=== PATIENT | female | born 1950 | race Caucasian/White ===

== ENCOUNTER → 2017-04-30 | Outpatient (CLI) | payer MEDICARE, MEDICAID ==
[~2017-04-30] MED LIST: ALPR0.25 PO; ALPR1TAB3 PO; LISI-587 PO; METF500T PO; NAPR-810 PO
--- NOTE | 2017-04-30 11:50 | RADRPT ---
EXAM DATE/TIME: 04/30/2017 11:28 [place] COMPARISON: CHEST PA & LAT, March 25, 2017, 15:04. INDICATIONS : Evaluate for pneumonia, pneumothorax, communicable diseases. Pre-op uterine surgery MEDICAL HISTORY : None. SURGICAL HISTORY : None. ENCOUNTER: Initial ACUITY: 1 day PAIN SCORE: 0/10 LOCATION: chest FINDINGS: Right chest port is in stable position. Lungs are focally clear. No pleural effusion is evident. Card iac contours are satisfactory. Thoracic skeleton is grossly intact. CONCLUSION: No acute disease Kenneth Khoury MD on April 30, 2017 at 11:46 Board Certified Radiologist. This report was verified electronically.
--- NOTE | 2017-04-30 13:41 | EKG ---
Date Performed: 04/30/2017 Time Performed: 10:54:41 PTAGE: 67 years EKG: Sinus rhythm NORMAL ECG No significant change from prior electrocardiogram. DOCTOR: Marcelino House Interpretating Date/Time 04/30/2017 13:16:48
== END ==
LOC: CPRE 10:24
PROVIDERS: ATTEND Obstetrics & Gynecology Gynecologic Oncology
DX: Z01.810 Encounter for preprocedural cardiovascular examination (principal); Z01.811 Encounter for preprocedural respiratory examination; C51.9 Malignant neoplasm of vulva, unspecified
CPT/HCPCS: 71046; 93005

== ENCOUNTER → 2017-05-12 | Day surgery (SDC) | payer MEDICARE, MEDICAID ==
[~2017-05-12] VITALS: Ht 144.8 cm; Wt 79.3 kg
[~2017-05-12] MED LIST changes: +*MEPERIDINE 25 MG INJ VIAL PERIprocedural Use ONLY ONE; -ALPR1TAB3 PO; +ASPI81TA23 PO; +CHLORHEXIDINE GLUCONATE 2 % 1 PACK (2 CLOTHS) TOPICAL PRN; +DEXAMETHASONE SOD PHOS 4 MG/ML VIAL IV ONE; +DO NOT ADM ANY ANTICOAGULANT DRUGS PRN; +KETOROLAC TROMETHAMINE 30 MG/ML (IVP) VIAL IV PUSH ONE; +LACTATED RINGER'S 1000 ML IV PRN; +LIDOCAINE 1%/EPINEPHrine 1:100,000 SOLN 30 ML VIAL ONE; +LIDOCAINE HCL 1% PF 5 ML SYRINGE OTHER ONE; +METOPROLOL TARTRATE 25 MG TAB PO PRN; +MIDAZOLAM HCL 2 MG/2 ML VIAL ONE; -NAPR-810 PO; +ONDANSETRON HCL 4 MG/2 ML VIAL IV ONE; +PHENYLEPH/NS 1000 MCG/10 ML SYR IV ONE; +POVIDONE IODINE 5% (ANTISEPSIS KIT) 4 APPLICATIONS EACH NARE PRN; +PROPOFOL 200 MG/20 ML AMP IV ONE; +SODIUM CHLORID 0.9% 500 ML IV PRN; +oxyCODONE/ACETAMINOPHEN 5 MG/325 MG TAB PO PRN
[2017-05-12 16:40] VITALS: BP 114/56; PULSE 75; RESP 18; TEMP 97.9; O2SAT 95
--- NOTE | 2017-05-13 12:23 | MP ---
cc: Gail Glynn MD, Paula M MD DATE OF OPERATION: 05/12/2017 Cc: Marcus Youssef DATE OF PROCEDURE: 05/12/2017. POSTOPERATIVE DIAGNOSES: 1. 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 2. Status post radiation treatment. 3. Persistent pain, altered anatomy, ulcerative areas. 4. Need to evaluate for possibility of persistent disease. POSTOPERATIVE DIAGNOSES: 1. 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 2. Status post radiation treatment. 3. Persistent pain, altered anatomy, ulcerative areas. 4. Need to evaluate for possibility of persistent disease. PROCEDURE PERFORMED: Examination under anesthesia, multifocal biopsies. SURGEON: Gail Glynn MD CHARGEBACK ANALYST: Becka visitor services assistant. ANESTHESIA: General endotracheal anesthesia. ESTIMATED BLOOD LOSS: 20 cc. 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 She underwent radiation therapy with [place] chemotherapy sensitization with good response to treatment. However, she continues to have some areas of chronic irritation on the vulva, some superficial ulcerations and some nodular changes. It is difficult to tell if it is anatomical changes consistent with prior tumor and radiation treatment versus persistent disease. Exam in the office is difficult as she is quite uncomfortable. She was counseled regarding options and was in favor of exam under anesthesia with multifocal biopsies. She is seen again in the preop holding area where 2 of her daughters are present. The findings, the plan of care and recommendations are discussed and reviewed. Questions were answered. She expressed good understanding and would like to move forward with the diagnostic surgical procedure. FINDINGS: As previously described in office note. There is no overt inguinal adenopathy. External genitalia has diffuse changes consistent with prior tumor and now status post radiation. There is loss of the normal folds of the labia minora and labia majora. There is some irritation to the vulva and vaginal mucosa with some stenotic changes. In the periclitoral region, especially on the right, there is superficial ulceration, thickening to the surrounding skin. Also, at the 5 o'clock position on the left vulva, there is some area of erythema and thickened skin. The most prominent area of necrotic-appearing tissue is at the 8 o'clock position on the right vulva, there is superficial ulceration/irritation on the perineum and she has what seems to be external hemorrhoids, but the overlying mucosa is thickened. On careful exam under anesthesia, it is still difficult to tell if there is any active cancer versus treatment change. PROCEDURE: She was taken to the operating room and placed in dorsal lithotomy position. After anesthesia was administered, timeout was undertaken. She was identified by site recognition, hospital ID carmel and the proposed procedure was reviewed and confirmed. Exam under anesthesia was performed with findings as described above. She was prepped and draped in sterile fashion. In-and-out catheterization of the bladder was performed. Each of the areas that appear abnormal are marked with a surgical marker. Lidocaine and epinephrine are injected and then 3 mm dermal punch biopsies were obtained from each of the areas described as abnormal above including the right clitoral, left vulva at 5 o'clock, right vulva at 8 o'clock, perineum and anal biopsies were obtained, labeled and sent separately. A single 3-0 Vicryl suture was used to render each biopsy site hemostatic. All sites were hemostatic. Exam confirmed there were no remaining foreign objects in the vagina. Preliminary and final counts were correct. She was returned to dorsal supine position and was pending reversal of anesthesia when I left the operating room to precede her to the Postanesthesia Care Unit. MD JOSH Foster/KAYCEE , 12:00 PM , 12:22 PM
== END | disposition home or self-care (01) ==
LOC: HSDC 10:50
PROVIDERS: ATTEND Obstetrics & Gynecology Gynecologic Oncology
DX: C51.9 Malignant neoplasm of vulva, unspecified (principal); I10 Essential (primary) hypertension; G47.30 Sleep apnea, unspecified; E11.9 Type 2 diabetes mellitus without complications; Z79.84 Long term (current) use of oral hypoglycemic drugs; Z79.82 Long term (current) use of aspirin; Z92.3 Personal history of irradiation
CPT/HCPCS: 00940; 56605; 56606; 86850; 86900; 86901; 88305; J1100; J1885; J2175; J2250; J2370; J2405; J3010; J7120; 88304

== ENCOUNTER 2017-11-18 12:02 | Observation (INO) ==
[2017-11-18] MEDS ORDERED: Sod Chloride 0.9% Inj 1,000 ML IV.SIG ONE (13:42)
[2017-11-18] MEDS ORDERED: Morphine Inj 4 MG/ML Vial IV.PUSH ONE ×2 (13:42→16:41)
--- NOTE | 2017-11-18 13:44 | ED ---
HPI General Chief complaint: Abdominal Pain Stated complaint: Poss GI Complaint Time Seen by Provider: 11/18/17 12:28 History of Present Illness HPI narrative: 67-year-old female with a history of vulvovaginal squamous cell carcinoma on chemotherapy, diabetes, anxiety, hypertension, peptic ulcer disease presents to the emergency department for evaluation of epigastric abdominal pain, nausea, black stools for 3 days. Patient states that the pain in her epigastric region radiates to her left upper quadrant, describes it as a burning pain. States that she also has some pain in her posterior oropharynx aggravated with swallowing. States she has had black bowel movements for the past 3 days, every bowel movement she has had. She is also complaining of generalized weakness, headache, lightheadedness. Denies fever, chills, vomiting , hematemesis, chest pain, shortness of breath, cough or cold symptoms, burning with urination, painful urination. States she had a colonoscopy earlier this year which was unremarkable. No other complaints. Related Data Home Medications Medication Instructions Recorded Confirmed alprazolam [Xanax] 0.25 mg PO HS 11/18/17 11/18/17 lisinopril 20 mg PO DAILY 11/18/17 11/18/17 metformin 500 mg PO DAILY 11/18/17 11/18/17 Allergies Allergy/AdvReac Type Severity Reaction Status Date / Time No Known Allergies Allergy Verified 11/18/17 16:38 Review of Systems ROS: all other systems reviewed are negative PMFSH Social History Social History Substance History: No History of Abuse Second Hand Smoke Exposure: Yes Smoking Status: Current every day smoker Tobacco Type: Cigarettes How Often Do You Have a Drink Containing Alcohol: Never Recent Travel in [facility] within the Last 8 Weeks: No Recent Out of Country Travel within the Last 8 Weeks: No Exam Narrative Exam Narrative: GENERAL: Well-nourished and well-developed pleasant patient in no acute distress who is nontoxic appearing. SKIN: Warm and dry. HEAD: Normocephalic and atraumatic. EYES: No injection, drainage, or hyphema noted. PERRLA. EOMI. ENT: No nasal drainage noted. Oropharynx is clear. NECK: Supple and the trachea is midline. CARDIOVASCULAR: Regular rate and rhythm. RESPIRATORY: Breath sounds are equal bilaterally with no accessory muscle use, wheezing, rhonchi, or crackles. GASTROINTESTINAL: Epigastric and left upper quadrant tenderness to palpation with guarding. Negative Moore sign. Negative McBurney's point. Abdomen is soft and nondistended. RECTAL EXAM: External hemorrhoids noted. No masses or tenderness, stool is brown. Performed in the presence of nurse. MUSCULOSKELETAL: No obvious deformities, swelling, cyanosis, or ecchymosis is present throughout the upper and lower extremities. Patient has full range of motion without any signs of neurovascular compromise. Distal pulses are 2+ throughout. NEUROLOGICAL: Awake, alert, and oriented. Normal speech and gait. Cranial nerves are grossly intact. Procedures Hemaprompt Stool Procedural Steps Taken: specimen placed in appropriate test area, developer placed on specimen and control areas and controls appropriately positive and negative Hemaprompt Stool Result: positive Course Initial Documented Vital Signs Temperature 98.1 F 11/18/17 12:10 Pulse Rate 78 11/18/17 12:10 Respiratory Rate 20 11/18/17 12:10 Blood Pressure 158/73 H 11/18/17 12:10 Pulse Oximetry 99 11/18/17 12:10 Last Documented Vital Signs Temperature 97.8 F 11/19/17 14:00 Pulse Rate 79 11/19/17 14:05 Respiratory Rate 16 11/19/17 14:05 Blood Pressure 125/60 11/19/17 14:00 Pulse Oximetry 99 11/19/17 14:05 Medical Decision Making [facility] Narrative Medical decision making narrative: 67-year-old female presents to the emergency room for evaluation of epigastric abdominal pain and black stools. Patient is afebrile, vital signs are stable. She does have some tenderness to palpation of the epigastric and left upper quadrant on exam. Stool guaiac is positive. IV access is obtained, labs been drawn and sent. Patient administered IV fluids , Zofran, morphine, Protonix bolus and drip. CBC shows slightly elevated white blood cell count of 11.3 and anemia with hemoglobin 9.6, hematocrit 28.6. This is a drop from her previous hemoglobin noted in April. Chest x-ray is unremarkable. Coags are unremarkable. CMP is unremarkable. Urinalysis is unremarkable. 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 Patient will be admitted for GI bleed. She is hemodynamically stable. GI consult placed. My attending physician spoke with Dr. Russ who accepts admission. Medical Screen Exam Complete: Yes Emergency Medical Condition: Yes Differential Diagnosis Differential Diagnosis: GI bleed versus peptic ulcer disease versus dehydration versus anemia Lab Data Result diagrams: 11/19/17 09:00 11/19/17 04:51 Lab Results 11/18/17 11/18/17 11/18/17 Range/Units 14:36 14:55 14:55 WBC 11.3 H (4.0-11.0) th/mm3 RBC 2.94 L (4.00-5.30) mil/mm3 Hgb 9.6 L (11.6-15.3) gm/dL Hct 28.6 L (35.0-46.0) % MCV 97.2 (80.0-100.0) fL MCH 32.7 (27.0-34.0) pg MCHC 33.7 (32.0-36.0) % RDW 16.5 (11.6-17.2) % Plt Count 174 (150-450) th/mm3 MPV 8.9 (7.0-11.0) fL Neut % (Auto) 77.4 H (16.0-70.0) % Lymph % (Auto) 14.5 (9.0-44.0) % [place] % (Auto) 6.4 (0.0-8.0) % Eos % (Auto) 1.2 (0.0-4.0) % Baso % (Auto) 0.5 (0.0-2.0) % Neut # (Auto) 8.7 H (1.8-7.7) th/mm3 Lymph # (Auto) 1.6 (1.0-4.8) th/mm3 [place] # (Auto) 0.7 (0.0-0.9) th/mm3 Eos # (Auto) 0.1 (0.0-0.4) th/mm3 Baso # (Auto) 0.1 (0.0-0.2) th/mm3 WBC Differential . Differential Comment Auto diff final PT 10.1 (9.8-11.6) sec INR 1.0 Ratio APTT 32.2 H (24.3-30.1) sec Sodium (136-145) meq/L Potassium (3.5-5.1) meq/L Chloride (98-107) meq/L Carbon Dioxide (21.0-32.0) meq/L Anion Gap (5-15) meq/L BUN (7-18) mg/dL Creatinine (0.50-1.00) mg/dL Estimated GFR (>89) mL/min POC Glucose (68-110) mg/dl Random Glucose (74-106) mg/dL Calcium (8.5-10.1) mg/dL Total Bilirubin (0.2-1.0) mg/dL AST (15-37) U/L ALT (10-53) U/L Alkaline Phosphatase (45-117) U/L Total Protein (6.4-8.2) g/dL Albumin (3.4-5.0) g/dL Lipase (73-393) U/L Urine Color Straw (Yellw/Straw) Urine Clarity Clear (Clear) Urine pH 5.0 (5.0-8.5) Ur Specific Plummer 1.010 (1.002-1.035) Urine Protein Negative (Neg-Trace) mg/dL Urine Glucose (UA) Negative (Negative) mg/dL Urine Ketones Negative (Negative) mg/dL Urine Occult Blood Small H (Negative) Urine Nitrate Negative (Negative) Urine Bilirubin Negative (Negative) Urine Urobilinogen Less than 2 (Less than 2) mg/dL Ur Leukocyte Esterase Negative (Negative) Urine RBC 1 (0-3) /hpf Urine WBC 2 (0-5) /hpf Ur Squamous Epith Cells <1 (0-5) /hpf Urine Bacteria Rare H (None) /hpf Hyaline Casts 1 (0-3) /lpf Urine Mucus Few H (Occasional) /lpf Micro UA Comment Culture not ind Ur Microscopic Review Not Reportable Urine Culture Comments Culture not ind Blood Type Blood Type Recheck Antibody Screen 11/18/17 11/18/17 11/18/17 Range/Units 14:55 14:55 21:20 WBC (4.0-11.0) th/mm3 RBC (4.00-5.30) mil/mm3 Hgb 9.1 L (11.6-15.3) gm/dL Hct 27.1 L (35.0-46.0) % MCV (80.0-100.0) fL MCH (27.0-34.0) pg MCHC (32.0-36.0) % RDW (11.6-17.2) % Plt Count (150-450) th/mm3 MPV (7.0-11.0) fL Neut % (Auto) (16.0-70.0) % Lymph % (Auto) (9.0-44.0) % [place] % (Auto) (0.0-8.0) % Eos % (Auto) (0.0-4.0) % Baso % (Auto) (0.0-2.0) % Neut # (Auto) (1.8-7.7) th/mm3 Lymph # (Auto) (1.0-4.8) th/mm3 [place] # (Auto) (0.0-0.9) th/mm3 Eos # (Auto) (0.0-0.4) th/mm3 Baso # (Auto) (0.0-0.2) th/mm3 WBC Differential Differential Comment PT (9.8-11.6) sec INR Ratio APTT (24.3-30.1) sec Sodium 143 (136-145) meq/L Potassium 4.9 (3.5-5.1) meq/L Chloride 107 (98-107) meq/L Carbon Dioxide 27.8 (21.0-32.0) meq/L Anion Gap 8 (5-15) meq/L BUN 12 (7-18) mg/dL Creatinine 0.59 (0.50-1.00) mg/dL Estimated GFR Greater than 89 (>89) mL/min POC Glucose (68-110) mg/dl Random Glucose 102 (74-106) mg/dL Calcium 8.8 (8.5-10.1) mg/dL Total Bilirubin 0.3 (0.2-1.0) mg/dL AST 21 (15-37) U/L ALT 16 (10-53) U/L Alkaline Phosphatase 114 (45-117) U/L Total Protein 7.4 (6.4-8.2) g/dL Albumin 3.0 L (3.4-5.0) g/dL Lipase 162 (73-393) U/L Urine Color (Yellw/Straw) Urine Clarity (Clear) Urine pH (5.0-8.5) Ur Specific [place]ummer (1.002-1.035) Urine Protein (Neg-Trace) mg/dL Urine Glucose (UA) (Negative) mg/dL Urine Ketones (Negative) mg/dL Urine Occult Blood (Negative) Urine Nitrate (Negative) Urine Bilirubin (Negative) Urine Urobilinogen (Less than 2) mg/dL Ur Leukocyte Esterase (Negative) Urine RBC (0-3) /hpf Urine WBC (0-5) /hpf Ur Squamous Epith Cells (0-5) /hpf Urine Bacteria (None) /hpf Hyaline Casts (0-3) /lpf Urine Mucus (Occasional) /lpf Micro UA Comment Ur Microscopic Review Urine Culture Comments Blood Type O Positive Blood Type Recheck Not needed Antibody Screen Negative 11/18/17 11/19/17 11/19/17 Range/Units 23:15 02:37 03:44 WBC (4.0-11.0) th/mm3 RBC (4.00-5.30) mil/mm3 Hgb 8.8 L (11.6-15.3) gm/dL Hct 26.1 L (35.0-46.0) % MCV (80.0-100.0) fL MCH (27.0-34.0) pg MCHC (32.0-36.0) % RDW (11.6-17.2) % Plt Count (150-450) th/mm3 MPV (7.0-11.0) fL Neut % (Auto) (16.0-70.0) % Lymph % (Auto) (9.0-44.0) % [place] % (Auto) (0.0-8.0) % Eos % (Auto) (0.0-4.0) % Baso % (Auto) (0.0-2.0) % Neut # (Auto) (1.8-7.7) th/mm3 Lymph # (Auto) (1.0-4.8) th/mm3 [place] # (Auto) (0.0-0.9) th/mm3 Eos # (Auto) (0.0-0.4) th/mm3 Baso # (Auto) (0.0-0.2) th/mm3 WBC Differential Differential Comment PT (9.8-11.6) sec INR Ratio APTT (24.3-30.1) sec Sodium (136-145) meq/L Potassium (3.5-5.1) meq/L Chloride (98-107) meq/L Carbon Dioxide (21.0-32.0) meq/L Anion Gap (5-15) meq/L BUN (7-18) mg/dL Creatinine (0.50-1.00) mg/dL Estimated GFR (>89) mL/min POC Glucose 134 H 112 H (68-110) mg/dl Random Glucose (74-106) mg/dL Calcium (8.5-10.1) mg/dL Total Bilirubin (0.2-1.0) mg/dL AST (15-37) U/L ALT (10-53) U/L Alkaline Phosphatase (45-117) U/L Total Protein (6.4-8.2) g/dL Albumin (3.4-5.0) g/dL Lipase (73-393) U/L Urine Color (Yellw/Straw) Urine Clarity (Clear) Urine pH (5.0-8.5) Ur Specific Plummer (1.002-1.035) Urine Protein (Neg-Trace) mg/dL Urine Glucose (UA) (Negative) mg/dL Urine Ketones (Negative) mg/dL Urine Occult Blood (Negative) Urine Nitrate (Negative) Urine Bilirubin (Negative) Urine Urobilinogen (Less than 2) mg/dL Ur Leukocyte Esterase (Negative) Urine RBC (0-3) /hpf Urine WBC (0-5) /hpf Ur Squamous Epith Cells (0-5) /hpf Urine Bacteria (None) /hpf Hyaline Casts (0-3) /lpf Urine Mucus (Occasional) /lpf Micro UA Comment Ur Microscopic Review Urine Culture Comments Blood Type Blood Type Recheck Antibody Screen 11/19/17 11/19/17 11/19/17 Range/Units 04:51 04:51 07:31 WBC 10.1 (4.0-11.0) th/mm3 RBC 2.75 L (4.00-5.30) mil/mm3 Hgb 8.9 L (11.6-15.3) gm/dL Hct 26.5 L (35.0-46.0) % MCV 96.3 (80.0-100.0) fL MCH 32.4 (27.0-34.0) pg MCHC 33.6 (32.0-36.0) % RDW 16.5 (11.6-17.2) % Plt Count 157 (150-450) th/mm3 MPV 8.6 (7.0-11.0) fL Neut % (Auto) 78.3 H (16.0-70.0) % Lymph % (Auto) 13.5 (9.0-44.0) % [place] % (Auto) 6.9 (0.0-8.0) % Eos % (Auto) 1.0 (0.0-4.0) % Baso % (Auto) 0.3 (0.0-2.0) % Neut # (Auto) 7.9 H (1.8-7.7) th/mm3 Lymph # (Auto) 1.4 (1.0-4.8) th/mm3 [place] # (Auto) 0.7 (0.0-0.9) th/mm3 Eos # (Auto) 0.1 (0.0-0.4) th/mm3 Baso # (Auto) 0.0 (0.0-0.2) th/mm3 WBC Differential . Differential Comment Auto diff final PT (9.8-11.6) sec INR Ratio APTT (24.3-30.1) sec Sodium 143 (136-145) meq/L Potassium 3.7 D (3.5-5.1) meq/L Chloride 110 H (98-107) meq/L Carbon Dioxide 26.4 (21.0-32.0) meq/L Anion Gap 7 (5-15) meq/L BUN 10 (7-18) mg/dL Creatinine 0.53 (0.50-1.00) mg/dL Estimated GFR Greater than 89 (>89) mL/min POC Glucose 136 H (68-110) mg/dl Random Glucose 97 (74-106) mg/dL Calcium 8.7 (8.5-10.1) mg/dL Total Bilirubin (0.2-1.0) mg/dL AST (15-37) U/L ALT (10-53) U/L Alkaline Phosphatase (45-117) U/L Total Protein (6.4-8.2) g/dL Albumin (3.4-5.0) g/dL Lipase (73-393) U/L Urine Color (Yellw/Straw) Urine Clarity (Clear) Urine pH (5.0-8.5) Ur Specific Plummer (1.002-1.035) Urine Protein (Neg-Trace) mg/dL Urine Glucose (UA) (Negative) mg/dL Urine Ketones (Negative) mg/dL Urine Occult Blood (Negative) Urine Nitrate (Negative) Urine Bilirubin (Negative) Urine Urobilinogen (Less than 2) mg/dL Ur Leukocyte Esterase (Negative) Urine RBC (0-3) /hpf Urine WBC (0-5) /hpf Ur Squamous Epith Cells (0-5) /hpf Urine Bacteria (None) /hpf Hyaline Casts (0-3) /lpf Urine Mucus (Occasional) /lpf Micro UA Comment Ur Microscopic Review Urine Culture Comments Blood Type Blood Type Recheck Antibody Screen 11/19/17 11/19/17 11/19/17 Range/Units 09:00 11:15 14:01 WBC (4.0-11.0) th/mm3 RBC (4.00-5.30) mil/mm3 Hgb 9.0 L (11.6-15.3) gm/dL Hct 25.5 L (35.0-46.0) % MCV (80.0-100.0) fL MCH (27.0-34.0) pg MCHC (32.0-36.0) % RDW (11.6-17.2) % Plt Count (150-450) th/mm3 MPV (7.0-11.0) fL Neut % (Auto) (16.0-70.0) % Lymph % (Auto) (9.0-44.0) % [place] % (Auto) (0.0-8.0) % Eos % (Auto) (0.0-4.0) % Baso % (Auto) (0.0-2.0) % Neut # (Auto) (1.8-7.7) th/mm3 Lymph # (Auto) (1.0-4.8) th/mm3 [place] # (Auto) (0.0-0.9) th/mm3 Eos # (Auto) (0.0-0.4) th/mm3 Baso # (Auto) (0.0-0.2) th/mm3 WBC Differential Differential Comment PT (9.8-11.6) sec INR Ratio APTT (24.3-30.1) sec Sodium (136-145) meq/L Potassium (3.5-5.1) meq/L Chloride (98-107) meq/L Carbon Dioxide (21.0-32.0) meq/L Anion Gap (5-15) meq/L BUN (7-18) mg/dL Creatinine (0.50-1.00) mg/dL Estimated GFR (>89) mL/min POC Glucose 121 H 127 H (68-110) mg/dl Random Glucose (74-106) mg/dL Calcium (8.5-10.1) mg/dL Total Bilirubin (0.2-1.0) mg/dL AST (15-37) U/L ALT (10-53) U/L Alkaline Phosphatase (45-117) U/L Total Protein (6.4-8.2) g/dL Albumin (3.4-5.0) g/dL Lipase (73-393) U/L Urine Color (Yellw/Straw) Urine Clarity (Clear) Urine pH (5.0-8.5) Ur Specific Plummer (1.002-1.035) Urine Protein (Neg-Trace) mg/dL Urine Glucose (UA) (Negative) mg/dL Urine Ketones (Negative) mg/dL Urine Occult Blood (Negative) Urine Nitrate (Negative) Urine Bilirubin (Negative) Urine Urobilinogen (Less than 2) mg/dL Ur Leukocyte Esterase (Negative) Urine RBC (0-3) /hpf Urine WBC (0-5) /hpf Ur Squamous Epith Cells (0-5) /hpf Urine Bacteria (None) /hpf Hyaline Casts (0-3) /lpf Urine Mucus (Occasional) /lpf Micro UA Comment Ur Microscopic Review Urine Culture Comments Blood Type Blood Type Recheck Antibody Screen Imaging Data Radiologist's impression: Abdomen/Pelvis CT 11/18/17 13:42 CONCLUSION: 1. No acute abnormality. 2. 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 3. Colonic diverticulosis without acute inflammation. Chest X-Ray 11/18/17 13:42 CONCLUSION: No acute cardiopulmonary disease. Discharge Plan Discharge Disposition Patient Disposition: 30 Still Patient Discharge Details Diagnosis: GI bleed Physicians Team ED Provider: Karsten Escudero ED Midlevel Provider: Marii Marie Attending Provider: Darlene Rocha Other Providers: Bryanna Najera Status ED Status: Left Department Discharge Information Discharge Date/Time: 11/18/17 22:50
[2017-11-18] MEDS ORDERED: Pantoprazole Inj 80 MG in Sodium Chlor 0.9% Inj 50 ML IV.SIG ONE (13:58)
--- NOTE | 2017-11-18 14:29 | XR ---
EXAM DATE: 11/18/2017 1:42 PM EDT AGE/SEX: 67 years / Female INDICATIONS: Chest pain and shortness of breath. CLINICAL DATA: This is the patient's initial encounter. Patient reports that signs and symptoms have been present for 1 day and indicates a pain score of 4/10. MEDICAL/SURGICAL HISTORY: Hypertension. Diabetes. None. COMPARISON: [facility] [place], CHEST PA & LAT, 04/30/2017. . FINDINGS: A single AP view of the chest demonstrates the lungs to be symmetrically aerated without evidence of mass, infiltrate or effusion. The cardiomediastinal contours are unremarkable. Osseous structures a re intact. Right-sided port with tip in the SVC and unchanged. CONCLUSION: No acute cardiopulmonary disease. Electronically signed by: Leonidas Narvaez MD 11/18/2017 2:27 PM EDT
[2017-11-18 15:10] LABS: Baso # (Auto) 0.1 th/mm3 (0.0-0.2); Baso % (Auto) 0.5 % (0.0-2.0); Eos # (Auto) 0.1 th/mm3 (0.0-0.4); Eos % (Auto) 1.2 % (0.0-4.0); Hematocrit 28.6 % (35.0-46.0); Hemoglobin 9.6 gm/dL (11.6-15.3); Lymph # (Auto) 1.6 th/mm3 (1.0-4.8); Lymph % (Auto) 14.5 % (9.0-44.0); Mean Corpuscular HGB Conc 33.7 % (32.0-36.0); Mean Corpuscular Hemoglobin 32.7 pg (27.0-34.0); Mean Corpuscular Volume 97.2 fL (80.0-100.0); Mean Platelet Volume 8.9 fL (7.0-11.0); Mono # (Auto) 0.7 th/mm3 (0.0-0.9); Mono % (Auto) 6.4 % (0.0-8.0); Neut # (Auto) 8.7 th/mm3 (1.8-7.7); Neut % (Auto) 77.4 % (16.0-70.0); Platelet Count 174 th/mm3 (150-450); Red Blood Count 2.94 mil/mm3 (4.00-5.30); Red Cell Distribution Width 16.5 % (11.6-17.2); White Blood Count 11.3 th/mm3 (4.0-11.0)
[2017-11-18 15:30] LABS: Alkaline Phosphatase 114 U/L (45-117); Total Protein 7.4 g/dL (6.4-8.2)
[2017-11-18 15:35] LABS: Bacteria,Urine Rare /hpf; Bilirubin,Urine Negative (Negative); Clarity,Urine Clear (Clear); Color,Urine Straw (Yellw/Straw); Glucose,Urine (UA) Negative (Negative); Hyaline Casts,Urine 1 /lpf (0-3); Leukocyte Esterase,Urine Negative (Negative); Mucus,Urine Few /lpf (Occasional); Nitrite,Urine Negative (Negative); Squamous Epithelial Cell,Urine <1 /hpf (0-5)
[2017-11-18 15:36] LABS: Activated Partial Thrombo Time 32.2 sec (24.3-30.1); Prothrombin Time 10.1 sec (9.8-11.6)
[2017-11-18 16:03] LABS: Alanine Aminotransferase 16 U/L (10-53); Anion Gap 8 meq/L (5-15); Aspartate Aminotransferase 21 U/L (15-37); Blood Urea Nitrogen 12 mg/dL (7-18); Calcium 8.8 mg/dL (8.5-10.1); Carbon Dioxide 27.8 meq/L (21.0-32.0); Chloride 107 meq/L (98-107); Glomerular Filtration Rate Greater Than 89 mL/min (>89); Glucose,Random 102 mg/dL (74-106); Lipase 162 U/L (73-393); Sodium 143 meq/L (136-145)
[2017-11-18 16:07] LABS: Potassium 4.9 meq/L (3.5-5.1)
[2017-11-18] MEDS ORDERED: Acetaminophen 500 MG Tablet PO ONE (16:41)
--- NOTE | 2017-11-18 17:24 | CT ---
EXAM DATE: 11/18/2017 4:32 PM EDT AGE/SEX: 67 years / Female INDICATIONS: Abdomen pain black tarry stools nausea vomiting CLINICAL DATA: This is the patient's initial encounter. Patient reports that signs and symptoms have been present for 3 days and indicates a pain score of 8/10. MEDICAL/SURGICAL HISTORY: Hypertension. Peptic ulcer Hysterectomy. Vulvar cancer ORAL CONTRAST: No oral contrast ingested. RADIATION DOSE: 12.69 CTDI (mGy) COMPARISON: [facility], CT ABDOMEN AND PELVIS W AND W/O CONTRAST, 02/26/2016. . TECHNIQUE: Multiple contiguous axial images were obtained through the abdomen and pelvis following b olus infusion of 85 ml Omnipaque 350 (iohexol) nonionic water-soluble contrast as a single exam dos e. No oral contrast ingested. Using automated exposure control and adjustment of the mA and/or kV ac cording to patient size, radiation dose was kept as low as reasonably achievable to obtain optimal di agnostic quality images. DICOM format image data is available electronically for review and comparis on. FINDINGS: Lower Lungs: Mild bibasilar atelectasis. Significant mitral valve calcifications. Small hiatal hernia . The visualized lower lungs are clear. Liver: The liver has a homogeneous density without space-occupying lesion. There is no dilation of th e biliary tree. Gallbladder is unremarkable. Spleen: Homogeneous density without enlargement. Pancreas: Unremarkable without mass or calcification. Kidneys: Again seen is a 1 cm rim calcified aneurysm associated with the renal pelvis on the left. T his is unchanged. Normal in size and shape. No evidence of mass or hydronephrosis. Adrenal Glands: Unremarkable. Aorta: Diffuse calcified atheromatous plaque throughout the aorta without aneurysmal dilation. Bowel/Mesentery: Scattered colonic diverticuli without acute inflammation. Appendix is normal by CT criteria. The bowel loops are grossly unremarkable. The cecum and sigmoid colon have a normal configu ration. Abdominal Wall: Intact. Retroperitoneum: No evidence of adenopathy in the retrocrural, para-aortic, or deep pelvic regions. Bladder: Contours are smooth. Reproductive Organs: No abnormal masses or calcifications seen. Inguinal: The inguinal region is unremarkable without evidence of adenopathy. Bony Structures: Unremarkable. CONCLUSION: 1. No acute abnormality. 2. 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 3. Colonic diverticulosis without acute inflammation. Electronically signed by: Ignacio Shah MD 11/18/2017 5:23 PM EDT
[2017-11-18] MEDS ORDERED: Bisacodyl 10 MG Supp RECTAL PRN (18:44)
[2017-11-18] MEDS ORDERED: Dextrose 50% in Water 50 ML Vial IV.PUSH PRN (20:03)
--- NOTE | 2017-11-18 20:10 | P.HP ---
History of Present Illness Service: [facility] Primary Care Physician: Radha Youssef History of Present Illness: 67-year-old female with a past medical history significant for vulvovaginal cancer, hypertension and diabetes mellitus presents to the emergency department for the evaluation of dizziness, headache, epigastric pain, nausea/vomiting and black, tarry stools times 3 days. The patient was sent by her [facility] oncologist, Dr. Glynn, for the evaluation of black tarry stools and associated symptoms. Patient denies fever/chills. Last chemotherapy 11/05/17. Status post radiation therapy. No chest pain or shortness of breath. Review of Systems All other systems reviewed negative except as stated in [facility] - History History Provided By: Medical Record - Medical History Medical History: Medical History (Last Reviewed 11/18/17 @ 20:06 by Felecia Alicia MD) Anxiety Arthritis Cancer Diabetes H/O: hysterectomy HTN (hypertension) Maintenance chemotherapy PUD (peptic ulcer disease) - Family History Family History: Family History (Last Updated 11/18/17 @ 20:06 by Felecia Alicia MD) Other Coronary artery disease Diabetes mellitus Hypertension - Tobacco History Smoking Status: Never smoker - Alcohol History How Often Do You Have a Drink Containing Alcohol: Never - Substance Use History Substance History: No History of Abuse - Travel History Recent Travel in the [place] Within the Last 8 Weeks: No Recent Travel Out of the Country Within the Last 8 Weeks: No - Immunization History Tetanus Immunization: <5 Years Medications and Allergies Active Medications: Active Medications Al Hydroxide/Mg Hydroxide (Milk Of Magnesia Liq) 30 ml PO Q12H PRN PRN Reason: Mild Constipation Bisacodyl (Dulcolax Supp) 10 mg RECTAL DAILY PRN PRN Reason: SEVERE CONSITIPATION Sodium Chloride (Ns Inj) 1,000 mls @ 125 mls/hr IV.CONT .Q8H GEOVANNI Lactulose (Lactulose Liq) 30 ml PO DAILY PRN PRN Reason: SEVERE CONSITIPATION Lisinopril (Prinivil) 20 mg PO DAILY GEOVANNI Ondansetron HCl (Zofran Inj) 4 mg IV.PUSH Q6H PRN PRN Reason: NAUSEA OR VOMITING Pantoprazole Sodium (Protonix Inj) 40 mg IV.PUSH Q12H GEOVANNI Senna/Docusate Sodium (Margie-Colace) 1 tab PO BID GEOVANNI Sennosides (Senokot) 17.2 mg PO Q12H PRN PRN Reason: Moderate Constipation Sodium Chloride (Ns Flush) 2 ml IV.FLUSH PRN PRN PRN Reason: FLUSH AFTER USING IV ACCESS Allergies Allergy/AdvReac Type Severity Reaction Status Date / Time No Known Allergies Allergy Verified 11/18/17 16:38 Home Medications Medication Instructions Recorded Confirmed Type alprazolam [Xanax] 0.25 mg PO HS 11/18/17 11/18/17 History lisinopril 20 mg PO DAILY 11/18/17 11/18/17 History metformin 500 mg PO DAILY 11/18/17 11/18/17 History Exam Vital signs: Vital Signs 11/18/17 12:10 11/18/17 13:37 11/18/17 16:35 Temperature 98.1 F Pulse Rate 78 83 77 Respiratory Rate 20 22 17 Blood Pressure 158/73 H 134/69 149/70 H Pulse Oximetry 99 100 98 Intake & Output 11/18/17 11/18/17 11/19/17 06:59 18:59 06:59 Intake Total 1050 / 1050 Balance 1050 / 1050 Weight 165.5 kg Intake: IV 1050 / 1050 Protonix Inj 80 MG In NS Inj 50 50 / 50 ML @ 600 mls/hr IV.SIG BOLUS ONE Rx#:[id number] Narrative: Gen.: No acute distress Head: Normocephalic. Atraumatic. EENT: Pupils equal round and reactive to light. Nose without drainage. Airway intact. Throat without injection. Cardiovascular: Regular rate and rhythm. No murmurs, rubs or gallops. Respiratory: Lungs clear to auscultation bilaterally. No wheezes or rhonchi. Abdomen: Soft, nontender, nondistended. No peritoneal signs. Musculoskeletal: No gross deformities. No edema. Skin: No obvious rashes or erythema. Neuro: Sensory and motor grossly intact. Cranial nerves II through XII grossly intact. Results - Labs CBC & Chem 7: 11/18/17 14:55 11/18/17 14:55 Labs: Laboratory Results - last 24 hr 11/18/17 11/18/17 11/18/17 14:36 14:55 14:55 WBC 11.3 H RBC 2.94 L Hgb 9.6 L Hct 28.6 L MCV 97.2 MCH 32.7 MCHC 33.7 RDW 16.5 Plt Count 174 MPV 8.9 Neut % (Auto) 77.4 H Lymph % (Auto) 14.5 [place] % (Auto) 6.4 Eos % (Auto) 1.2 Baso % (Auto) 0.5 Neut # (Auto) 8.7 H Lymph # (Auto) 1.6 [place] # (Auto) 0.7 Eos # (Auto) 0.1 Baso # (Auto) 0.1 WBC Differential . Differential Comment Auto diff final PT 10.1 INR 1.0 APTT 32.2 H Sodium Potassium Chloride Carbon Dioxide Anion Gap BUN Creatinine Estimated GFR Random Glucose Calcium Total Bilirubin AST ALT Alkaline Phosphatase Total Protein Albumin Lipase Urine Color Straw Urine Clarity Clear Urine pH 5.0 Ur Specific [place] 1.010 Urine Protein Negative Urine Glucose (UA) Negative Urine Ketones Negative Urine Occult Blood Small H Urine Nitrate Negative Urine Bilirubin Negative Urine Urobilinogen Less than 2 Ur Leukocyte Esterase Negative Urine RBC 1 Urine WBC 2 Ur Squamous Epith Cells <1 Urine Bacteria Rare H Hyaline Casts 1 Urine Mucus Few H Micro UA Comment Culture not ind Ur Microscopic Review Not Reportable Urine Culture Comments Culture not ind Blood Type Blood Type Recheck Antibody Screen 11/18/17 11/18/17 14:55 14:55 WBC RBC Hgb Hct MCV MCH MCHC RDW Plt Count MPV Neut % (Auto) Lymph % (Auto) [place] % (Auto) Eos % (Auto) Baso % (Auto) Neut # (Auto) Lymph # (Auto) [place] # (Auto) Eos # (Auto) Baso # (Auto) WBC Differential Differential Comment PT INR APTT Sodium 143 Potassium 4.9 Chloride 107 Carbon Dioxide 27.8 Anion Gap 8 BUN 12 Creatinine 0.59 Estimated GFR Greater than 89 Random Glucose 102 Calcium 8.8 Total Bilirubin 0.3 AST 21 ALT 16 Alkaline Phosphatase 114 Total Protein 7.4 Albumin 3.0 L Lipase 162 Urine Color Urine Clarity Urine pH Ur Specific [place] Urine Protein Urine Glucose (UA) Urine Ketones Urine Occult Blood Urine Nitrate Urine Bilirubin Urine Urobilinogen Ur Leukocyte Esterase Urine RBC Urine WBC Ur Squamous Epith Cells Urine Bacteria Hyaline Casts Urine Mucus Micro UA Comment Ur Microscopic Review Urine Culture Comments Blood Type O Positive Blood Type Recheck Not needed Antibody Screen Negative - Imaging Impressions Abdomen/Pelvis CT 11/18/17 13:42 CONCLUSION: 1. No acute abnormality. 2. 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 3. Colonic diverticulosis without acute inflammation. Chest X-Ray 11/18/17 13:42 CONCLUSION: No acute cardiopulmonary disease. Caprini VTE Risk Assessment Caprini VTE Risk Assessment: Moderate/High Risk (score >= 2) VTE Pharmacological Exception Reason: Active bleeding Caprini Risk Assessment Model: Point Value = 1 Point Value = 2 Point Value = 3 Point Value = 5 Age 41-60 Minor surgery BMI > 25 kg/m2 Swollen legs Varicose veins or History of unexplained or recurrent spontaneous Oral contraceptives or hormone replacement Sepsis (< 1 month) Serious lung disease, including pneumonia (< 1 month) Abnormal pulmonary function Acute myocardial infarction Congestive heart failure (< 1 month) History of inflammatory bowel disease Medical patient at bed rest Age 61-74 Arthroscopic surgery Major open surgery (> 45 min) Laparoscopic surgery (> 45 min) Malignancy Confined to bed (> 72 hours) Immobilizing plaster cast Central venous access Age >= 75 History of VTE Family history of VTE Factor V Leiden Prothrombin [id number] Lupus anticoagulant Anticardiolipin antibodies Elevated serum homocysteine Heparin-induced thrombocytopenia Other congenital or acquired thrombophilia Stroke (< 1 month) Elective arthroplasty Hip, pelvis, or leg fracture Acute spinal cord injury (< 1 month) Prophylaxis Regimen: Total Risk Factor Score Risk Level Prophylaxis Regimen 0-1 Low Early ambulation 2 Moderate Order ONE of the following: *Sequential Compression Device (SCD) *Heparin 5000 units SQ BID 3-4 Higher Order ONE of the following medications: *Heparin 5000 units SQ TID *Enoxaparin/Lovenox 40 mg SQ daily (WT < 150 kg, CrCl > 30 mL/min) *Enoxaparin/Lovenox 30 mg SQ daily (WT < 150 kg, CrCl > 10-29 mL/min) *Enoxaparin/Lovenox 30 mg SQ BID (WT < 150 kg, CrCl > 30 mL/min) AND/OR *Sequential Compression Device (SCD) 5 or more Highest Order ONE of the following medications: *Heparin 5000 units SQ TID (Preferred with Epidurals) *Enoxaparin/Lovenox 40 mg SQ daily (WT < 150 kg, CrCl > 30 mL/min) *Enoxaparin/Lovenox 30 mg SQ daily (WT < 150 kg, CrCl > 10-29 mL/min) *Enoxaparin/Lovenox 30 mg SQ BID (WT < 150 kg, CrCl > 30 mL/min) AND *Sequential Compression Device (SCD) Assessment and Plan - Plan Assessment/plan: 1. Lower GI bleed Serial H&H IV Protonix Gastroenterology consulted, appreciate recommendations 2. Diabetes mellitus Holding home metformin Sliding-scale insulin Monitor blood glucose 3. Hypertension Continue home lisinopril 4. Vulvovaginal cancer Continue outpatient treatment FEN N.p.o. Electrolytes: Monitor and replete as needed NS at 125 cc/hour Holding pharmacologic anticoagulation for GI bleed
--- NOTE | 2017-11-18 20:15 | ECG ---
Date Performed: 11/18/2017 Time Performed: 15:33:20 PTAGE: 67 years EKG: Sinus rhythm NORMAL ECG INTERPRETATION BASED ON A DEFAULT AGE OF 41 YEARS NO PREVIOUS TRACING DOCTOR: Rolan Barajas Interpretating Date/Time 11/18/2017 20:14:44
[2017-11-18] MEDS: Pantoprazole Inj 40 MG Vial IV.PUSH SCH (21:25)
[2017-11-18 22:20] LABS: Hematocrit 27.1 % (35.0-46.0); Hemoglobin 9.1 gm/dL (11.6-15.3)
[2017-11-18] MEDS: Sod Chloride 0.9% Inj 1,000 ML IV.CONT SCH (23:13)
[2017-11-18] MEDS: Senna/Docusate Sodium 8.6/50 MG Tablet PO SCH (23:14)
[2017-11-18] MEDS: Insulin NovoLOG Aspart Correctional Sugar Inj SQ SCH (23:16)
[2017-11-19] MEDS ORDERED: ALPRAZolam 0.25 MG Tablet PO ONE (00:09)
[2017-11-19 02:45] LABS: Hematocrit 26.1 % (35.0-46.0); Hemoglobin 8.8 gm/dL (11.6-15.3)
[2017-11-19] MEDS: Insulin NovoLOG Aspart Correctional Sugar Inj SQ SCH ×5 (03:46→21:39)
[2017-11-19] MEDS: Sod Chloride 0.9% Inj 1,000 ML IV.CONT SCH ×3 (05:22→22:00)
[2017-11-19 05:58] LABS: Baso % (Auto) 0.3 % (0.0-2.0); Eos # (Auto) 0.1 th/mm3 (0.0-0.4); Hematocrit 26.5 % (35.0-46.0); Hemoglobin 8.9 gm/dL (11.6-15.3); Lymph # (Auto) 1.4 th/mm3 (1.0-4.8); Lymph % (Auto) 13.5 % (9.0-44.0); Mean Corpuscular HGB Conc 33.6 % (32.0-36.0); Mean Corpuscular Hemoglobin 32.4 pg (27.0-34.0); Mean Corpuscular Volume 96.3 fL (80.0-100.0); Mean Platelet Volume 8.6 fL (7.0-11.0); Mono # (Auto) 0.7 th/mm3 (0.0-0.9); Mono % (Auto) 6.9 % (0.0-8.0); Neut # (Auto) 7.9 th/mm3 (1.8-7.7); Neut % (Auto) 78.3 % (16.0-70.0); Platelet Count 157 th/mm3 (150-450); Red Blood Count 2.75 mil/mm3 (4.00-5.30); Red Cell Distribution Width 16.5 % (11.6-17.2); White Blood Count 10.1 th/mm3 (4.0-11.0)
[2017-11-19 06:18] LABS: Anion Gap 7 meq/L (5-15); Blood Urea Nitrogen 10 mg/dL (7-18); Calcium 8.7 mg/dL (8.5-10.1); Carbon Dioxide 26.4 meq/L (21.0-32.0); Chloride 110 meq/L (98-107); Glomerular Filtration Rate Greater Than 89 mL/min (>89); Glucose,Random 97 mg/dL (74-106); Potassium 3.7 meq/L (3.5-5.1); Sodium 143 meq/L (136-145)
[2017-11-19] MEDS: Senna/Docusate Sodium 8.6/50 MG Tablet PO SCH ×2 (08:36→20:00)
[2017-11-19] MEDS: Pantoprazole Inj 40 MG Vial IV.PUSH SCH ×2 (08:37→19:56)
[2017-11-19] MEDS: Lisinopril 20 MG Tablet PO SCH (08:37)
[2017-11-19 09:21] LABS: Hematocrit 25.5 % (35.0-46.0)
--- NOTE | 2017-11-19 09:52 | P.CONGI ---
History of Present Illness Consult date: 11/19/17 Consult reason: GI bleed Chief complaint: GI Bleed History of Present Illness: This is a 67-year-old female with medical history significant for vulvovaginal cancer who is currently undergoing IV chemotherapy treatment. Patient presented to the emergency department yesterday, was sent by her oncologist for further evaluation of reports of black, tarry stools. Patient reports that she has been having black tarry stools since Thursday. States that she has been having 1-2 episodes a day but did not have a bowel movement yesterday. Also complaining of nausea and vomiting, denies any coffee-ground emesis or hematemesis. Also complaining of abdominal pain, states it is currently radiating throughout the entire abdomen. Describes pain as a muscle spasm, does notice increase in pain with bowel movements. Patient also complaining of dysphagia, states this been going on for some time. States dysphagia only with solids, does not have any issues with liquids. Denies odynophagia. Denies heartburn. Patient believes she had an EGD about a year ago with Dr. Antonio and she cannot remember the exam findings. She does report history of gastric ulcers. Patient did take ibuprofen for 2 days recently but denies frequent use of NSAIDs. Denies EtOH. Smokes 1 pack of cigarettes that lasts her two days. <Kelly Frazier - Last Filed: 11/19/17 09:53> Review of Systems Gastrointestinal: Reports abdominal pain, Reports black, tarry stools, Reports difficulty swallowing, Reports heartburn, Reports nausea, Reports vomiting, Denies bright, red blood in stools, Denies loose stools <Kelly Frazier - Last Filed: 11/19/17 09:53> PMFSH - History History Provided By: Patient - Medical History Medical History: Medical History (Last Reviewed 11/19/17 @ 07:51 by Maged Dsouza) Anxiety Arthritis Cancer Diabetes H/O: hysterectomy HTN (hypertension) Maintenance chemotherapy PUD (peptic ulcer disease) - Family History Family History: Family History (Last Reviewed 11/19/17 @ 07:51 by Maged Dsouza) Other Coronary artery disease Diabetes mellitus Hypertension - Tobacco History Second Hand Smoke Exposure: Yes Tobacco Use In Past 30 Days: Yes Smoking Status: Current every day smoker Tobacco Type: Cigarettes - Alcohol History How Often Do You Have a Drink Containing Alcohol: Never - Substance Use History Substance History: No History of Abuse - Travel History Recent Travel in the [place] Within the Last 8 Weeks: No Recent Travel Out of the Country Within the Last 8 Weeks: No - Immunization History Tetanus Immunization: <5 Years <Kelly Frazier - Last Filed: 11/19/17 09:53> - Medical History Medical History: Medical History (Last Reviewed 11/19/17 @ 07:51 by Maged Dsouza) Anxiety Arthritis Cancer Diabetes H/O: hysterectomy HTN (hypertension) Maintenance chemotherapy PUD (peptic ulcer disease) - Family History Family History: Family History (Last Reviewed 11/19/17 @ 07:51 by Maged Dsouza) Other Coronary artery disease Diabetes mellitus Hypertension <Bryanna Najera - Last Filed: 11/19/17 16:51> Medications and Allergies Active Medications: Active Medications Al Hydroxide/Mg Hydroxide (Milk Of Magnesia Liq) 30 ml PO Q12H PRN PRN Reason: Mild Constipation Alprazolam (Xanax) 0.25 mg PO HS [facility]NI Bisacodyl (Dulcolax Supp) 10 mg RECTAL DAILY PRN PRN Reason: SEVERE CONSITIPATION Dextrose (D50w Vial) 50 ml IV.PUSH UNSCH PRN PRN Reason: PER HYPOGLYCEMIA PROTOCOL Glucagon (Glucagon Inj) 1 mg OTHER PRN PRN PRN Reason: for Hypoglycemia Protocol Sodium Chloride (Ns Inj) 1,000 mls @ 125 mls/hr IV.CONT .Q8H [facility] Last Admin: 11/19/17 05:22 Dose: Not Given Insulin Aspart (Novolog Insulin Correctional Sugar Inj) 0 unit SQ ACHS AND 3AM GEOVANNI; Protocol Last Admin: 11/19/17 08:37 Dose: Not Given Lactulose (Lactulose Liq) 30 ml PO DAILY PRN PRN Reason: SEVERE CONSITIPATION Lisinopril (Prinivil) 20 mg PO DAILY [facility] Last Admin: 11/19/17 08:37 Dose: 20 mg Ondansetron HCl (Zofran Inj) 4 mg IV.PUSH Q6H PRN PRN Reason: NAUSEA OR VOMITING Pantoprazole Sodium (Protonix Inj) 40 mg IV.PUSH Q12H [facility] Last Admin: 11/19/17 08:37 Dose: Not Given Senna/Docusate Sodium (Margie-Colace) 1 tab PO BID [facility] Last Admin: 11/19/17 08:36 Dose: 1 tab Sennosides (Senokot) 17.2 mg PO Q12H PRN PRN Reason: Moderate Constipation Sodium Chloride (Ns Flush) 2 ml IV.FLUSH PRN PRN PRN Reason: FLUSH AFTER USING IV ACCESS <Kelly Frazier - Last Filed: 11/19/17 09:53> Active Medications: Active Medications Acetaminophen (Tylenol Liq) 650 mg PO Q6H PRN PRN Reason: PAIN SCALE 1 TO 10 Hydrocodone Bitart/Acetaminophen ([place] 5/325) 1 tab PO Q4H PRN PRN Reason: BREAKTHROUGH PAIN Last Admin: 11/19/17 16:06 Dose: 1 tab Al Hydroxide/Mg Hydroxide (Milk Of Magnesia Liq) 30 ml PO Q12H PRN PRN Reason: Mild Constipation Alprazolam (Xanax) 0.25 mg PO HS [facility] Bisacodyl (Dulcolax Supp) 10 mg RECTAL DAILY PRN PRN Reason: SEVERE CONSITIPATION Dextrose (D50w Vial) 50 ml IV.PUSH UNSCH PRN PRN Reason: PER HYPOGLYCEMIA PROTOCOL Glucagon (Glucagon Inj) 1 mg OTHER PRN PRN PRN Reason: for Hypoglycemia Protocol Sodium Chloride (Ns Inj) 1,000 mls @ 125 mls/hr IV.CONT .Q8H [facility] Last Admin: 11/19/17 05:22 Dose: Not Given Insulin Aspart (Novolog Insulin Correctional Sugar Inj) 0 unit SQ ACHS AND 3AM GEOVANNI; Protocol Last Admin: 11/19/17 11:20 Dose: Not Given Lactulose (Lactulose Liq) 30 ml PO DAILY PRN PRN Reason: SEVERE CONSITIPATION Lisinopril (Prinivil) 20 mg PO DAILY [facility] Last Admin: 11/19/17 08:37 Dose: 20 mg Miscellaneous Information (Misc Nursing Information) 0 each OTHER UNSCH PRN PRN Reason: SEE LABEL COMMENTS Stop: 11/20/17 13:38 Ondansetron HCl (Zofran Inj) 4 mg IV.PUSH Q6H PRN PRN Reason: NAUSEA OR VOMITING Pantoprazole Sodium (Protonix Inj) 40 mg IV.PUSH Q12H [facility] Last Admin: 11/19/17 08:37 Dose: Not Given Senna/Docusate Sodium (Margie-Colace) 1 tab PO BID [facility] Last Admin: 11/19/17 08:36 Dose: 1 tab Sennosides (Senokot) 17.2 mg PO Q12H PRN PRN Reason: Moderate Constipation Sodium Chloride (Ns Flush) 2 ml IV.FLUSH PRN PRN PRN Reason: FLUSH AFTER USING IV ACCESS <Bryanna Najera - Last Filed: 11/19/17 16:51> Allergies Allergy/AdvReac Type Severity Reaction Status Date / Time No Known Allergies Allergy Verified 11/18/17 16:38 Home Medications Medication Instructions Recorded Confirmed Type alprazolam [Xanax] 0.25 mg PO HS 11/18/17 11/18/17 History lisinopril 20 mg PO DAILY 11/18/17 11/18/17 History metformin 500 mg PO DAILY 11/18/17 11/18/17 History Exam Vital signs: Vital Signs 11/18/17 12:10 11/18/17 13:37 11/18/17 16:35 Temperature 98.1 F Pulse Rate 78 83 77 Respiratory Rate 20 22 17 Blood Pressure 158/73 H 134/69 149/70 H Pulse Oximetry 99 100 98 11/18/17 23:25 11/19/17 01:30 11/19/17 05:42 Temperature 98.2 F 97.9 F 98.3 F Pulse Rate 78 73 87 Respiratory Rate 18 18 17 Blood Pressure 126/60 103/57 L 124/55 L Pulse Oximetry 97 96 96 11/19/17 07:00 11/19/17 08:00 Temperature 98.5 F Pulse Rate 84 76 Respiratory Rate 16 Blood Pressure 136/74 Pulse Oximetry 100 Intake & Output 11/18/17 11/19/17 11/19/17 18:59 06:59 18:59 Intake Total 1050 / 1050 Balance 1050 / 1050 Weight 165.5 kg 78 kg 79.4 kg Intake: IV 1050 / 1050 Protonix Inj 80 MG In NS Inj 50 50 / 50 ML @ 600 mls/hr IV.SIG BOLUS ONE Rx#:[id number] Other: Date of Last Bowel Movement 11/18/17 11/17/17 Weight On Admission 77.564 kg - Constitutional no acute distress - Routine HEENT Exam Head: Present: normocephalic, atraumatic - Routine Respiratory Exam Absent: accessory muscle use - Routine Abdominal Exam Present: soft, normoactive bowel sounds, tenderness (diffuse tenderness ), distended - Routine Skin Exam Present: dry, warm - Routine Neurological Exam Present: alert, oriented X3 <Kelly Frazier - Last Filed: 11/19/17 09:53> Vital signs: Vital Signs 11/18/17 23:25 11/19/17 01:30 11/19/17 05:42 Temperature 98.2 F 97.9 F 98.3 F Pulse Rate 78 73 87 Respiratory Rate 18 18 17 Blood Pressure 126/60 103/57 L 124/55 L Pulse Oximetry 97 96 96 11/19/17 07:00 11/19/17 08:00 11/19/17 11:00 Temperature 98.5 F 98 F Pulse Rate 84 76 75 Respiratory Rate 16 18 Blood Pressure 136/74 121/74 Pulse Oximetry 100 96 11/19/17 13:35 11/19/17 13:45 11/19/17 14:00 Temperature 98.3 F 97.8 F Pulse Rate 89 85 77 Respiratory Rate 16 17 16 Blood Pressure 137/65 132/63 125/60 Pulse Oximetry 95 96 98 11/19/17 14:05 11/19/17 15:00 Temperature 98.1 F Pulse Rate 79 81 Respiratory Rate 16 20 Blood Pressure 139/85 Pulse Oximetry 99 100 Intake & Output 11/18/17 11/19/17 11/19/17 18:59 06:59 18:59 Intake Total 1050 / 1050 400 / 400 Balance 1050 / 1050 400 / 400 Weight 165.5 kg 78 kg 79.4 kg Intake: IV 1050 / 1050 Protonix Inj 80 MG In NS Inj 50 50 / 50 ML @ 600 mls/hr IV.SIG BOLUS ONE Rx#:[id number] Anesthesia Amount 400 / 400 Other: Date of Last Bowel Movement 11/18/17 11/17/17 Weight On Admission 77.564 kg <Bryanna Najera - Last Filed: 11/19/17 16:51> Results - Labs CBC & Chem 7: 11/19/17 09:00 11/19/17 04:51 Labs: Laboratory Results - last 24 hr 11/18/17 11/18/17 11/18/17 14:36 14:55 14:55 WBC 11.3 H RBC 2.94 L Hgb 9.6 L Hct 28.6 L MCV 97.2 MCH 32.7 MCHC 33.7 RDW 16.5 Plt Count 174 MPV 8.9 Neut % (Auto) 77.4 H Lymph % (Auto) 14.5 [place] % (Auto) 6.4 Eos % (Auto) 1.2 Baso % (Auto) 0.5 Neut # (Auto) 8.7 H Lymph # (Auto) 1.6 [place] # (Auto) 0.7 Eos # (Auto) 0.1 Baso # (Auto) 0.1 WBC Differential . Differential Comment Auto diff final PT 10.1 INR 1.0 APTT 32.2 H Sodium Potassium Chloride Carbon Dioxide Anion Gap BUN Creatinine Estimated GFR POC Glucose Random Glucose Calcium Total Bilirubin AST ALT Alkaline Phosphatase Total Protein Albumin Lipase Urine Color Straw Urine Clarity Clear Urine pH 5.0 Ur Specific [place] 1.010 Urine Protein Negative Urine Glucose (UA) Negative Urine Ketones Negative Urine Occult Blood Small H Urine Nitrate Negative Urine Bilirubin Negative Urine Urobilinogen Less than 2 Ur Leukocyte Esterase Negative Urine RBC 1 Urine WBC 2 Ur Squamous Epith Cells <1 Urine Bacteria Rare H Hyaline Casts 1 Urine Mucus Few H Micro UA Comment Culture not ind Ur Microscopic Review Not Reportable Urine Culture Comments Culture not ind Blood Type Blood Type Recheck Antibody Screen 11/18/17 11/18/17 11/18/17 14:55 14:55 21:20 WBC RBC Hgb 9.1 L Hct 27.1 L MCV MCH MCHC RDW Plt Count MPV Neut % (Auto) Lymph % (Auto) [place] % (Auto) Eos % (Auto) Baso % (Auto) Neut # (Auto) Lymph # (Auto) [place] # (Auto) Eos # (Auto) Baso # (Auto) WBC Differential Differential Comment PT INR APTT Sodium 143 Potassium 4.9 Chloride 107 Carbon Dioxide 27.8 Anion Gap 8 BUN 12 Creatinine 0.59 Estimated GFR Greater than 89 POC Glucose Random Glucose 102 Calcium 8.8 Total Bilirubin 0.3 AST 21 ALT 16 Alkaline Phosphatase 114 Total Protein 7.4 Albumin 3.0 L Lipase 162 Urine Color Urine Clarity Urine pH Ur Specific [place] Urine Protein Urine Glucose (UA) Urine Ketones Urine Occult Blood Urine Nitrate Urine Bilirubin Urine Urobilinogen Ur Leukocyte Esterase Urine RBC Urine WBC Ur Squamous Epith Cells Urine Bacteria Hyaline Casts Urine Mucus Micro UA Comment Ur Microscopic Review Urine Culture Comments Blood Type O Positive Blood Type Recheck Not needed Antibody Screen Negative 11/18/17 11/19/17 11/19/17 23:15 02:37 03:44 WBC RBC Hgb 8.8 L Hct 26.1 L MCV MCH MCHC RDW Plt Count MPV Neut % (Auto) Lymph % (Auto) [place] % (Auto) Eos % (Auto) Baso % (Auto) Neut # (Auto) Lymph # (Auto) [place] # (Auto) Eos # (Auto) Baso # (Auto) WBC Differential Differential Comment PT INR APTT Sodium Potassium Chloride Carbon Dioxide Anion Gap BUN Creatinine Estimated GFR POC Glucose 134 H 112 H Random Glucose Calcium Total Bilirubin AST ALT Alkaline Phosphatase Total Protein Albumin Lipase Urine Color Urine Clarity Urine pH Ur Specific [place] Urine Protein Urine Glucose (UA) Urine Ketones Urine Occult Blood Urine Nitrate Urine Bilirubin Urine Urobilinogen Ur Leukocyte Esterase Urine RBC Urine WBC Ur Squamous Epith Cells Urine Bacteria Hyaline Casts Urine Mucus Micro UA Comment Ur Microscopic Review Urine Culture Comments Blood Type Blood Type Recheck Antibody Screen 11/19/17 11/19/17 11/19/17 04:51 04:51 07:31 WBC 10.1 RBC 2.75 L Hgb 8.9 L Hct 26.5 L MCV 96.3 MCH 32.4 MCHC 33.6 RDW 16.5 Plt Count 157 MPV 8.6 Neut % (Auto) 78.3 H Lymph % (Auto) 13.5 [place] % (Auto) 6.9 Eos % (Auto) 1.0 Baso % (Auto) 0.3 Neut # (Auto) 7.9 H Lymph # (Auto) 1.4 [place] # (Auto) 0.7 Eos # (Auto) 0.1 Baso # (Auto) 0.0 WBC Differential . Differential Comment Auto diff final PT INR APTT Sodium 143 Potassium 3.7 D Chloride 110 H Carbon Dioxide 26.4 Anion Gap 7 BUN 10 Creatinine 0.53 Estimated GFR Greater than 89 POC Glucose 136 H Random Glucose 97 Calcium 8.7 Total Bilirubin AST ALT Alkaline Phosphatase Total Protein Albumin Lipase Urine Color Urine Clarity Urine pH Ur Specific [place] Urine Protein Urine Glucose (UA) Urine Ketones Urine Occult Blood Urine Nitrate Urine Bilirubin Urine Urobilinogen Ur Leukocyte Esterase Urine RBC Urine WBC Ur Squamous Epith Cells Urine Bacteria Hyaline Casts Urine Mucus Micro UA Comment Ur Microscopic Review Urine Culture Comments Blood Type Blood Type Recheck Antibody Screen 11/19/17 09:00 WBC RBC Hgb 9.0 L Hct 25.5 L MCV MCH MCHC RDW Plt Count MPV Neut % (Auto) Lymph % (Auto) [place] % (Auto) Eos % (Auto) Baso % (Auto) Neut # (Auto) Lymph # (Auto) [place] # (Auto) Eos # (Auto) Baso # (Auto) WBC Differential Differential Comment PT INR APTT Sodium Potassium Chloride Carbon Dioxide Anion Gap BUN Creatinine Estimated GFR POC Glucose Random Glucose Calcium Total Bilirubin AST ALT Alkaline Phosphatase Total Protein Albumin Lipase Urine Color Urine Clarity Urine pH Ur Specific [place] Urine Protein Urine Glucose (UA) Urine Ketones Urine Occult Blood Urine Nitrate Urine Bilirubin Urine Urobilinogen Ur Leukocyte Esterase Urine RBC Urine WBC Ur Squamous Epith Cells Urine Bacteria Hyaline Casts Urine Mucus Micro UA Comment Ur Microscopic Review Urine Culture Comments Blood Type Blood Type Recheck Antibody Screen - Imaging Impressions Abdomen/Pelvis CT 11/18/17 13:42 CONCLUSION: 1. No acute abnormality. 2. 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 3. Colonic diverticulosis without acute inflammation. Chest X-Ray 11/18/17 13:42 CONCLUSION: No acute cardiopulmonary disease. <Kelly Frazier - Last Filed: 11/19/17 09:53> - Labs CBC & Chem 7: 11/19/17 14:47 11/19/17 04:51 Labs: Laboratory Results - last 24 hr 11/18/17 11/18/17 11/19/17 21:20 23:15 02:37 WBC RBC Hgb 9.1 L 8.8 L Hct 27.1 L 26.1 L MCV MCH MCHC RDW Plt Count MPV Neut % (Auto) Lymph % (Auto) [place] % (Auto) Eos % (Auto) Baso % (Auto) Neut # (Auto) Lymph # (Auto) [place] # (Auto) Eos # (Auto) Baso # (Auto) WBC Differential Differential Comment Sodium Potassium Chloride Carbon Dioxide Anion Gap BUN Creatinine Estimated GFR POC Glucose 134 H Random Glucose Calcium 11/19/17 11/19/17 11/19/17 03:44 04:51 04:51 WBC 10.1 RBC 2.75 L Hgb 8.9 L Hct 26.5 L MCV 96.3 MCH 32.4 MCHC 33.6 RDW 16.5 Plt Count 157 MPV 8.6 Neut % (Auto) 78.3 H Lymph % (Auto) 13.5 [place] % (Auto) 6.9 Eos % (Auto) 1.0 Baso % (Auto) 0.3 Neut # (Auto) 7.9 H Lymph # (Auto) 1.4 [place] # (Auto) 0.7 Eos # (Auto) 0.1 Baso # (Auto) 0.0 WBC Differential . Differential Comment Auto diff final Sodium 143 Potassium 3.7 D Chloride 110 H Carbon Dioxide 26.4 Anion Gap 7 BUN 10 Creatinine 0.53 Estimated GFR Greater than 89 POC Glucose 112 H Random Glucose 97 Calcium 8.7 11/19/17 11/19/17 11/19/17 07:31 09:00 11:15 WBC RBC Hgb 9.0 L Hct 25.5 L MCV MCH MCHC RDW Plt Count MPV Neut % (Auto) Lymph % (Auto) [place] % (Auto) Eos % (Auto) Baso % (Auto) Neut # (Auto) Lymph # (Auto) [place] # (Auto) Eos # (Auto) Baso # (Auto) WBC Differential Differential Comment Sodium Potassium Chloride Carbon Dioxide Anion Gap BUN Creatinine Estimated GFR POC Glucose 136 H 121 H Random Glucose Calcium 11/19/17 11/19/17 14:01 14:47 WBC RBC Hgb 9.6 L Hct 27.9 L MCV MCH MCHC RDW Plt Count MPV Neut % (Auto) Lymph % (Auto) [place] % (Auto) Eos % (Auto) Baso % (Auto) Neut # (Auto) Lymph # (Auto) [place] # (Auto) Eos # (Auto) Baso # (Auto) WBC Differential Differential Comment Sodium Potassium Chloride Carbon Dioxide Anion Gap BUN Creatinine Estimated GFR POC Glucose 127 H Random Glucose Calcium - Imaging Impressions Abdomen/Pelvis CT 11/18/17 13:42 CONCLUSION: 1. No acute abnormality. 2. 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 3. Colonic diverticulosis without acute inflammation. <Bryanna Najera - Last Filed: 11/19/17 16:51> Assessment and Plan - Plan Assessment Anemia secondary to acute GI bleedpatient sent by oncologist for evaluation of black, tarry stools that she states is been going on since Thursday. States 1-2 episodes today. Denies BM yesterday. Guaiac stool positive in ER. Also reports nausea and vomiting, denies any hematemesis or coffee-ground emesis. Also complaining of abdominal pain, generalized over her entire abdomen. Described as a muscle spasm feeling, pain is worse with bowel movements. Think she had an EGD year ago, unsure of exam findings. Does report history of gastric ulcers. Took ibuprofen for 2 days this week, but denies routine use of NSAIDs. Denies EtOH. Smokes 1 pack over [address] abdomen/pelvis with IV contrast--> no acute findings. Colonic diverticulosis without diverticulitis. Plan EGD today Obtain consent Keep n.p.o. Monitor H/H Transfuse as indicated Protonix Antiemetics as needed Further recommendations to follow This patient has been seen and examined by myself and Dr. Najera and this note is written on his behalf <Kelly Frazier - Last Filed: 11/19/17 09:53> - Plan Seen and examined with [employer], egd planned for today. Very poor dentition, states teeth very bad since chemotherapy. The exam, history, and the medical decision-making described in the above note were completed with the assistance of the mid-level provider. I reviewed and agree with the findings presented. I attest that I had a [id number] encounter with the patient on the same day, and personally performed and documented my assessment and findings in the medical record. <Bryanna Najera - Last Filed: 11/19/17 16:51>
[2017-11-19] MEDS ORDERED: Lidocaine PF 1% Inj 5 ML Syringe OTHER ONE (12:55)
[2017-11-19] MEDS ORDERED: Esmolol Bolus Inj 100 MG/10 ML Vial IV.PUSH ONE (12:55)
--- NOTE | 2017-11-19 13:25 | GIPROC ---
[facility] [address] [facility]. [facility], [address] EGD PROCEDURE REPORT EXAM DATE: 11/19/2017 PATIENT NAME: Jamila Deleon MR #: [id number] BIRTHDATE: 1950 ATTENDING: Bryanna Najera MD ORDER #: [id number] [facility] ECOLOGIST: Tasia Rangel and Sheri Najera STATUS: inpatient INDICATIONS: The patient is a 67 yr old female here for an EGD due to epigastric abdominal pain and vomiting PROCEDURE PERFORMED: EGD w/ biopsy MEDICATIONS: Per Anesthesia and None. TOPICAL ANESTHETIC: CONSENT: The patient understands the risks and benefits of the procedure and understands that these risks include, but are not limited to: sedation, allergic reaction, infection, perforation and/or bleeding. Alternative means of evaluation and treatment include, among others: physical exam, x-rays, and/or surgical intervention. The patient elects to proceed with this endoscopic procedure. medical equipment was checked for proper function. Hand hygiene and appropriate measures for infection prevention was taken. After the risks, benefits and alternatives of the procedure were thoroughly explained, Informed consent was verified, confirmed and timeout was successfully executed by the treatment team. The patient was anesthetized with topical anesthesia and the Pentax EG-[id number] endoscope was introduced through the mouth and advanced to the second portion of the duodenum. Retroflexed views revealed no abnormalities The gastroscope was then slowly withdrawn and removed. ESOPHAGUS: The mucosa of the esophagus appeared normal. DUODENUM: The duodenal mucosa appeared normal in the bulb and second portion of the duodenum. STOMACH: A large non-bleeding, deep and irregular shaped ulcer, measuring 30 x 30mm in size, with surrounding edema, heaped up edges and a red spot was found in the gastric body and on the anterior wall of the stomach. Biopsies were taken around the ulcer. ADVERSE EVENTS: There were no complications. IMPRESSIONS: 1. The esophagus appeared normal 2. Normal duodenal mucosa in the bulb and second portion of the duodenum 3. Large ulcer, measuring 30 x 30mm in size, was found in the gastric body and on the anterior wall of the stomach; biopsies were taken 4. Retroflexed views revealed no abnormalities RECOMMENDATIONS: 1. Await biopsy results. Biopsy results will not be ready for 7-10 days. If you don't hear from us in two weeks, call our office for biopsy results. 2. Anti-reflux regimen 3. Continue PPI 4. Avoid NSAIDS PATIENT CONDITION: stable DISPOSITION: Inpatient REPEAT EXAM: Return 1 month EGD pending biopsy results Bryanna Najera MD eSigned: Bryanna Najera MD 11/19/2017 1:24 PM cc: PATIENT NAME: Jamila Deleon MR#: [id number]
[2017-11-19] MEDS ORDERED: *Ondansetron Inj 4 MG/2 ML Vial PERIprocedural Use ONLY ONE (13:45)
--- NOTE | 2017-11-19 14:23 | P.PNIM ---
Subjective Interval history: Patient seen earlier this morning prior to EGD. She reports mid epigastric pain. No vomiting. No bowel movement today. Physical Exam Vital signs: Vital Signs 11/18/17 16:35 11/18/17 23:25 11/19/17 01:30 Temperature 98.2 F 97.9 F Pulse Rate 77 78 73 Respiratory Rate 17 18 18 Blood Pressure 149/70 H 126/60 103/57 L Pulse Oximetry 98 97 96 11/19/17 05:42 11/19/17 07:00 11/19/17 08:00 Temperature 98.3 F 98.5 F Pulse Rate 87 84 76 Respiratory Rate 17 16 Blood Pressure 124/55 L 136/74 Pulse Oximetry 96 100 11/19/17 11:00 11/19/17 13:35 11/19/17 13:45 Temperature 98 F 98.3 F Pulse Rate 75 89 85 Respiratory Rate 18 16 17 Blood Pressure 121/74 137/65 132/63 Pulse Oximetry 96 95 96 11/19/17 14:00 11/19/17 14:05 Temperature 97.8 F Pulse Rate 77 79 Respiratory Rate 16 16 Blood Pressure 125/60 Pulse Oximetry 98 99 Intake & Output 11/18/17 11/19/17 11/19/17 18:59 06:59 18:59 Intake Total 1050 / 1050 400 / 400 Balance 1050 / 1050 400 / 400 Weight 165.5 kg 78 kg 79.4 kg Intake: IV 1050 / 1050 Protonix Inj 80 MG In NS Inj 50 50 / 50 ML @ 600 mls/hr IV.[facility] Rx#:[id number] Anesthesia Amount 400 / 400 Other: Date of Last Bowel Movement 11/18/17 11/17/17 Weight On Admission 77.564 kg Narrative: GENERAL: This is a well-nourished, well-developed patient, in no apparent distress. CARDIOVASCULAR: Normal rate and regular rhythm without murmurs, gallops, or rubs. RESPIRATORY: Good respiratory efforts. Breath sounds equal and clear to auscultation bilaterally. GASTROINTESTINAL: Abdomen obese, tender to palpation in the midepigastric region. Normal and active bowel sounds. MUSCULOSKELETAL: Extremities without cyanosis, or edema. NEURO: Alert & Oriented x4 to person, place, time, situation. Moves all ext x4 PSYCH: Appropriate mood and affect. Results - Labs CBC & Chem 7: 11/19/17 09:00 11/19/17 04:51 Laboratory Results - last 24 hr 11/18/17 11/18/17 11/18/17 14:36 14:55 14:55 WBC 11.3 H RBC 2.94 L Hgb 9.6 L Hct 28.6 L MCV 97.2 MCH 32.7 MCHC 33.7 RDW 16.5 Plt Count 174 MPV 8.9 Neut % (Auto) 77.4 H Lymph % (Auto) 14.5 Anderson % (Auto) 6.4 Eos % (Auto) 1.2 Baso % (Auto) 0.5 Neut # (Auto) 8.7 H Lymph # (Auto) 1.6 Anderson # (Auto) 0.7 Eos # (Auto) 0.1 Baso # (Auto) 0.1 WBC Differential . Differential Comment Auto diff final PT 10.1 INR 1.0 APTT 32.2 H Sodium Potassium Chloride Carbon Dioxide Anion Gap BUN Creatinine Estimated GFR POC Glucose Random Glucose Calcium Total Bilirubin AST ALT Alkaline Phosphatase Total Protein Albumin Lipase Urine Color Straw Urine Clarity Clear Urine pH 5.0 Ur Specific [place] 1.010 Urine Protein Negative Urine Glucose (UA) Negative Urine Ketones Negative Urine Occult Blood Small H Urine Nitrate Negative Urine Bilirubin Negative Urine Urobilinogen Less than 2 Ur Leukocyte Esterase Negative Urine RBC 1 Urine WBC 2 Ur Squamous Epith Cells <1 Urine Bacteria Rare H Hyaline Casts 1 Urine Mucus Few H Micro UA Comment Culture not ind Ur Microscopic Review Not Reportable Urine Culture Comments Culture not ind Blood Type Blood Type Recheck Antibody Screen 11/18/17 11/18/17 11/18/17 14:55 14:55 21:20 WBC RBC Hgb 9.1 L Hct 27.1 L MCV MCH MCHC RDW Plt Count MPV Neut % (Auto) Lymph % (Auto) Anderson % (Auto) Eos % (Auto) Baso % (Auto) Neut # (Auto) Lymph # (Auto) Anderson # (Auto) Eos # (Auto) Baso # (Auto) WBC Differential Differential Comment PT INR APTT Sodium 143 Potassium 4.9 Chloride 107 Carbon Dioxide 27.8 Anion Gap 8 BUN 12 Creatinine 0.59 Estimated GFR Greater than 89 POC Glucose Random Glucose 102 Calcium 8.8 Total Bilirubin 0.3 AST 21 ALT 16 Alkaline Phosphatase 114 Total Protein 7.4 Albumin 3.0 L Lipase 162 Urine Color Urine Clarity Urine pH Ur Specific [place] Urine Protein Urine Glucose (UA) Urine Ketones Urine Occult Blood Urine Nitrate Urine Bilirubin Urine Urobilinogen Ur Leukocyte Esterase Urine RBC Urine WBC Ur Squamous Epith Cells Urine Bacteria Hyaline Casts Urine Mucus Micro UA Comment Ur Microscopic Review Urine Culture Comments Blood Type O Positive Blood Type Recheck Not needed Antibody Screen Negative 11/18/17 11/19/17 11/19/17 23:15 02:37 03:44 WBC RBC Hgb 8.8 L Hct 26.1 L MCV MCH MCHC RDW Plt Count MPV Neut % (Auto) Lymph % (Auto) Anderson % (Auto) Eos % (Auto) Baso % (Auto) Neut # (Auto) Lymph # (Auto) Anderson # (Auto) Eos # (Auto) Baso # (Auto) WBC Differential Differential Comment PT INR APTT Sodium Potassium Chloride Carbon Dioxide Anion Gap BUN Creatinine Estimated GFR POC Glucose 134 H 112 H Random Glucose Calcium Total Bilirubin AST ALT Alkaline Phosphatase Total Protein Albumin Lipase Urine Color Urine Clarity Urine pH Ur Specific [place] Urine Protein Urine Glucose (UA) Urine Ketones Urine Occult Blood Urine Nitrate Urine Bilirubin Urine Urobilinogen Ur Leukocyte Esterase Urine RBC Urine WBC Ur Squamous Epith Cells Urine Bacteria Hyaline Casts Urine Mucus Micro UA Comment Ur Microscopic Review Urine Culture Comments Blood Type Blood Type Recheck Antibody Screen 11/19/17 11/19/17 11/19/17 04:51 04:51 07:31 WBC 10.1 RBC 2.75 L Hgb 8.9 L Hct 26.5 L MCV 96.3 MCH 32.4 MCHC 33.6 RDW 16.5 Plt Count 157 MPV 8.6 Neut % (Auto) 78.3 H Lymph % (Auto) 13.5 Anderson % (Auto) 6.9 Eos % (Auto) 1.0 Baso % (Auto) 0.3 Neut # (Auto) 7.9 H Lymph # (Auto) 1.4 Anderson # (Auto) 0.7 Eos # (Auto) 0.1 Baso # (Auto) 0.0 WBC Differential . Differential Comment Auto diff final PT INR APTT Sodium 143 Potassium 3.7 D Chloride 110 H Carbon Dioxide 26.4 Anion Gap 7 BUN 10 Creatinine 0.53 Estimated GFR Greater than 89 POC Glucose 136 H Random Glucose 97 Calcium 8.7 Total Bilirubin AST ALT Alkaline Phosphatase Total Protein Albumin Lipase Urine Color Urine Clarity Urine pH Ur Specific [place] Urine Protein Urine Glucose (UA) Urine Ketones Urine Occult Blood Urine Nitrate Urine Bilirubin Urine Urobilinogen Ur Leukocyte Esterase Urine RBC Urine WBC Ur Squamous Epith Cells Urine Bacteria Hyaline Casts Urine Mucus Micro UA Comment Ur Microscopic Review Urine Culture Comments Blood Type Blood Type Recheck Antibody Screen 11/19/17 11/19/17 11/19/17 09:00 11:15 14:01 WBC RBC Hgb 9.0 L Hct 25.5 L MCV MCH MCHC RDW Plt Count MPV Neut % (Auto) Lymph % (Auto) Anderson % (Auto) Eos % (Auto) Baso % (Auto) Neut # (Auto) Lymph # (Auto) Anderson # (Auto) Eos # (Auto) Baso # (Auto) WBC Differential Differential Comment PT INR APTT Sodium Potassium Chloride Carbon Dioxide Anion Gap BUN Creatinine Estimated GFR POC Glucose 121 H 127 H Random Glucose Calcium Total Bilirubin AST ALT Alkaline Phosphatase Total Protein Albumin Lipase Urine Color Urine Clarity Urine pH Ur Specific [place] Urine Protein Urine Glucose (UA) Urine Ketones Urine Occult Blood Urine Nitrate Urine Bilirubin Urine Urobilinogen Ur Leukocyte Esterase Urine RBC Urine WBC Ur Squamous Epith Cells Urine Bacteria Hyaline Casts Urine Mucus Micro UA Comment Ur Microscopic Review Urine Culture Comments Blood Type Blood Type Recheck Antibody Screen - Imaging Impressions Abdomen/Pelvis CT 11/18/17 13:42 CONCLUSION: 1. No acute abnormality. 2. 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 3. Colonic diverticulosis without acute inflammation. Chest X-Ray 11/18/17 13:42 CONCLUSION: No acute cardiopulmonary disease. Assessment and Plan - Plan 67-year-old female with: Acute GI bleeding: Patient presented with melena -GI following and planning for EGD today. - Serial H&H - IV Protonix Acute blood loss anemia secondary to GI bleeding: - Plan as above. Follow serial H&H and transfuse for hemoglobin less than 7. Diabetes mellitus Holding home metformin Sliding-scale insulin Monitor blood glucose Hypertension Continue home lisinopril Vulvovaginal cancer Continue outpatient treatment
[2017-11-19 15:16] LABS: Hematocrit 27.9 % (35.0-46.0); Hemoglobin 9.6 gm/dL (11.6-15.3)
[2017-11-19] MEDS ORDERED: ALPRAZolam 0.5 MG Tablet PO SCH (21:00)
[2017-11-20] MEDS: Insulin NovoLOG Aspart Correctional Sugar Inj SQ SCH ×4 (02:22→14:57)
[2017-11-20] MEDS: Sod Chloride 0.9% Inj 1,000 ML IV.CONT SCH ×2 (04:19→14:56)
[2017-11-20 05:34] VITALS: BP 122/69
[2017-11-20 05:46] LABS: Hematocrit 22.9 % (35.0-46.0); Hemoglobin 7.8 gm/dL (11.6-15.3); Mean Corpuscular HGB Conc 34.2 % (32.0-36.0); Mean Corpuscular Hemoglobin 32.8 pg (27.0-34.0); Mean Corpuscular Volume 95.9 fL (80.0-100.0); Mean Platelet Volume 8.8 fL (7.0-11.0); Platelet Count 148 th/mm3 (150-450); Red Blood Count 2.39 mil/mm3 (4.00-5.30); Red Cell Distribution Width 16.5 % (11.6-17.2); White Blood Count 6.4 th/mm3 (4.0-11.0)
[2017-11-20 06:01] LABS: Anion Gap 11 meq/L (5-15); Blood Urea Nitrogen 10 mg/dL (7-18); Calcium 7.6 mg/dL (8.5-10.1); Carbon Dioxide 26.6 meq/L (21.0-32.0); Chloride 110 meq/L (98-107); Glomerular Filtration Rate Greater Than 89 mL/min (>89); Glucose,Random 107 mg/dL (74-106); Potassium 3.7 meq/L (3.5-5.1); Sodium 148 meq/L (136-145)
[2017-11-20] MEDS: Senna/Docusate Sodium 8.6/50 MG Tablet PO SCH (09:53)
[2017-11-20] MEDS: Pantoprazole Inj 40 MG Vial IV.PUSH SCH (09:53)
[2017-11-20] MEDS: Lisinopril 20 MG Tablet PO SCH (09:54)
[2017-11-20 10:04] LABS: Hematocrit 24.8 % (35.0-46.0); Hemoglobin 8.4 gm/dL (11.6-15.3)
--- NOTE | 2017-11-20 11:18 | P.PNGI ---
Subjective Interval history: Patient walking around room. Status post EGD yesterday. Patient reports she has had two normally formed bowel movements, denies any hematochezia or melena. Patient denies any nausea, vomiting, abdominal pain. She is concerned about loose teeth in the top of her mouth. According to anesthesia record patient had loose teeth prior to procedure and this was discussed with patient as a risk. Patient also having some swelling to left upper lip, appears to have an aphthous ulcer inside of her left upper lip. <Kelly Frazier - Last Filed: 11/20/17 11:04> Physical Exam Vital signs: Vital Signs 11/19/17 13:35 11/19/17 13:45 11/19/17 14:00 Temperature 98.3 F 97.8 F Pulse Rate 89 85 77 Respiratory Rate 16 17 16 Blood Pressure 137/65 132/63 125/60 Pulse Oximetry 95 96 98 11/19/17 14:05 11/19/17 15:00 11/19/17 20:00 Temperature 98.1 F 97.9 F Pulse Rate 79 81 80 Respiratory Rate 16 20 16 Blood Pressure 139/85 103/46 L Pulse Oximetry 99 100 98 11/19/17 23:00 11/20/17 04:00 Temperature 98.4 F 98 F Pulse Rate 87 70 Respiratory Rate 16 16 Blood Pressure 105/60 122/69 Pulse Oximetry 97 Intake & Output 11/19/17 11/20/17 11/20/17 18:59 06:59 18:59 Intake Total 1880 / 1880 1000 / 1000 Balance 1880 / 1880 1000 / 1000 Weight 79.4 kg Intake: IV 1000 / 1000 1000 / 1000 NS Inj 1,000 ML @ 125 mls/hr IV 1000 / 1000 1000 / 1000 .CONT .Q8H [facility] Rx#:[id number] Oral 480 / 480 Anesthesia Amount 400 / 400 Other: # Voids 4 4 Date of Last Bowel Movement 11/19/17 11/19/17 # Bowel Movements 1 - Constitutional no acute distress - Routine HEENT Exam Head: Present: normocephalic, atraumatic ENT: Absent: dentition normal Comments: poor dentition, swollen gums, aphthous ulcer with some swelling to left upper lip - Routine Respiratory Exam Absent: accessory muscle use - Routine Abdominal Exam Present: soft, normoactive bowel sounds. Absent: tenderness, distended - Routine Skin Exam Present: dry, warm - Routine Neurological Exam Present: alert, oriented X3 <Kelly Frazier - Last Filed: 11/20/17 11:04> Vital signs: Vital Signs 11/19/17 13:35 11/19/17 13:45 11/19/17 14:00 Temperature 98.3 F 97.8 F Pulse Rate 89 85 77 Respiratory Rate 16 17 16 Blood Pressure 137/65 132/63 125/60 Pulse Oximetry 95 96 98 11/19/17 14:05 11/19/17 15:00 11/19/17 20:00 Temperature 98.1 F 97.9 F Pulse Rate 79 81 80 Respiratory Rate 16 20 16 Blood Pressure 139/85 103/46 L Pulse Oximetry 99 100 98 11/19/17 23:00 11/20/17 04:00 Temperature 98.4 F 98 F Pulse Rate 87 70 Respiratory Rate 16 16 Blood Pressure 105/60 122/69 Pulse Oximetry 97 Intake & Output 11/19/17 11/20/17 11/20/17 18:59 06:59 18:59 Intake Total 1880 / 1880 1000 / 1000 Balance 1880 / 1880 1000 / 1000 Weight 79.4 kg Intake: IV 1000 / 1000 1000 / 1000 NS Inj 1,000 ML @ 125 mls/hr IV 1000 / 1000 1000 / 1000 .CONT .Q8H [facility] Rx#:[id number] Oral 480 / 480 Anesthesia Amount 400 / 400 Other: # Voids 4 4 Date of Last Bowel Movement 11/19/17 11/19/17 # Bowel Movements 1 <Bryanna Najera - Last Filed: 11/20/17 13:18> Results - Labs CBC & Chem 7: 11/20/17 09:48 11/20/17 04:49 Laboratory Results - last 24 hr 11/19/17 11/19/17 11/19/17 11:15 14:01 14:47 WBC RBC Hgb 9.6 L Hct 27.9 L MCV MCH MCHC RDW Plt Count MPV Sodium Potassium Chloride Carbon Dioxide Anion Gap BUN Creatinine Estimated GFR POC Glucose 121 H 127 H Random Glucose Calcium 11/19/17 11/20/17 11/20/17 16:53 04:49 04:49 WBC 6.4 RBC 2.39 L Hgb 7.8 L Hct 22.9 L MCV 95.9 MCH 32.8 MCHC 34.2 RDW 16.5 Plt Count 148 L MPV 8.8 Sodium 148 H Potassium 3.7 Chloride 110 H Carbon Dioxide 26.6 Anion Gap 11 BUN 10 Creatinine 0.54 Estimated GFR Greater than 89 POC Glucose 130 H Random Glucose 107 H Calcium 7.6 L D 11/20/17 11/20/17 08:56 09:48 WBC RBC Hgb 8.4 L Hct 24.8 L MCV MCH MCHC RDW Plt Count MPV Sodium Potassium Chloride Carbon Dioxide Anion Gap BUN Creatinine Estimated GFR POC Glucose 152 H Random Glucose Calcium <Kelly Frazier - Last Filed: 11/20/17 11:04> - Labs CBC & Chem 7: 11/20/17 09:48 11/20/17 04:49 Laboratory Results - last 24 hr 11/19/17 11/19/17 11/19/17 14:01 14:47 16:53 WBC RBC Hgb 9.6 L Hct 27.9 L MCV MCH MCHC RDW Plt Count MPV Sodium Potassium Chloride Carbon Dioxide Anion Gap BUN Creatinine Estimated GFR POC Glucose 127 H 130 H Random Glucose Calcium 11/20/17 11/20/17 11/20/17 04:49 04:49 08:56 WBC 6.4 RBC 2.39 L Hgb 7.8 L Hct 22.9 L MCV 95.9 MCH 32.8 MCHC 34.2 RDW 16.5 Plt Count 148 L MPV 8.8 Sodium 148 H Potassium 3.7 Chloride 110 H Carbon Dioxide 26.6 Anion Gap 11 BUN 10 Creatinine 0.54 Estimated GFR Greater than 89 POC Glucose 152 H Random Glucose 107 H Calcium 7.6 L D 11/20/17 11/20/17 09:48 11:57 WBC RBC Hgb 8.4 L Hct 24.8 L MCV MCH MCHC RDW Plt Count MPV Sodium Potassium Chloride Carbon Dioxide Anion Gap BUN Creatinine Estimated GFR POC Glucose 164 H Random Glucose Calcium <Bryanna Najera - Last Filed: 11/20/17 13:18> Assessment and Plan - Plan Assessment Anemia secondary to acute GI bleedpatient sent by oncologist for evaluation of black, tarry stools that she states is been going on since Thursday. States 1-2 episodes today. Denies BM yesterday. Guaiac stool positive in ER. Also reports nausea and vomiting, denies any hematemesis or coffee-ground emesis. Also complaining of abdominal pain, generalized over her entire abdomen. Described as a muscle spasm feeling, pain is worse with bowel movements. Think she had an EGD year ago, unsure of exam findings. Does report history of gastric ulcers. Took ibuprofen for 2 days this week, but denies routine use of NSAIDs. Denies EtOH. Smokes 1 pack over [address] abdomen/pelvis with IV contrast--> no acute findings. Colonic diverticulosis without diverticulitis. (11/20) S/P EGD yesterday --> The esophagus appeared normal. Normal duodenal mucosa in the bulb and second portion of the duodenum. Large ulcer, measuring 30 x 30mm in size, was found in the gastric body and on the anterior wall of the stomach; biopsies were taken. Retroflexed views revealed no abnormalities H/H with some drop 8.4/24.8. No obvious bleeding. 2 BMs, formed, no hematochezia or melena Pt complaining of loose teeth in her upper mouth. Discussed with pt that after reviewing anesthesia documentation that pt was noted to have loose teeth and this was discussed with pt prior to the procedure. Pt also complaining of some swelling to her left upper lip, exam reveals what appears to be an aphthous ulcer on the inside of left upper lip. Plan Monitor H/H If further trend down will pursue colonoscopy Protonix EGD biopsy pending Ice pack to lip Further recommendations to follow This patient has been seen and examined by myself and Dr. Najera and this note is written on his behalf <Kelly Frazier - Last Filed: 11/20/17 11:04> - Plan Seen and examined with HEATING AND VENTILATING WORKER, still complaining of pain in the lip and loose tooth. Discussed procedure with her again today. Also discussed with Anesthesia MD and SHOPPING INSPECTOR. Every precaution was taken during the egd to protect the teeth. The patient was advised about the possibilty of loosing teeth due to her very poor dentition by the SHOPPING INSPECTOR prior to intubation. Discussed with Dr Metzger, await biopsy results. The exam, history, and the medical decision-making described in the above note were completed with the assistance of the mid-level provider. I reviewed and agree with the findings presented. I attest that I had a [id number] encounter with the patient on the same day, and personally performed and documented my assessment and findings in the medical record. <Bryanna Najera - Last Filed: 11/20/17 13:18>
--- NOTE | 2017-11-20 16:35 | P.DS ---
Date of admission: 11/18/17 18:37 Primary care physician: Radha Youssef Brief History from admission: HPI from the admitting physician: 67-year-old female with a past medical history significant for vulvovaginal cancer, hypertension and diabetes mellitus presents to the emergency department for the evaluation of dizziness, headache, epigastric pain, nausea/vomiting and black, tarry stools times 3 days. The patient was sent by her SPORTS PHYSIOLOGIST oncologist, Dr. Glynn, for the evaluation of black tarry stools and associated symptoms. Patient denies fever/chills. Last chemotherapy 11/05/17. Status post radiation therapy. No chest pain or shortness of breath. Patient update on day of discharge: Patient reports she is feeling better. She is tolerating her diet. No episodes of GI bleeding. Anxious to go home. DS: Medications - Discharge Medications Prescriptions: hydrocodone-acetaminophen 1 tab PO Q4H PRN #12 tab PRN Reason: Breakthrough Pain pantoprazole 40 mg PO DAILY #30 tab DS: Summary Hospital Course: 67-year-old female admitted and treated for the following: Acute GI bleeding: Patient presented with melena -GI followed the patient. She was treated with IV Protonix. She underwent EGD which showed a large gastric ulcer. Biopsies were taken. GI bleeding resolved. The patient is to continue on PPI. He is to follow-up outpatient with GI for pathology. Acute blood loss anemia secondary to GI bleeding: -H&H remains stable. Patient did not require transfusion. She is advised to follow-up outpatient. Poor dentition: - The patient was advised to follow-up outpatient with a dentist. Diabetes mellitus Resume home dose metformin on discharge Hypertension Continue home lisinopril Vulvovaginal cancer Continue outpatient treatment - Time Spent with Patient Total time spent providing and/or coordinating discharge services: Less than 30 minutes - Quality: VTE Deep Vein Thrombosis/Pulmonary Embolism Present on Admission: No Exam Vital signs: Vital Signs 11/19/17 20:00 11/19/17 23:00 11/20/17 04:00 Temperature 97.9 F 98.4 F 98 F Pulse Rate 80 87 70 Respiratory Rate 16 16 16 Blood Pressure 103/46 L 105/60 122/69 Pulse Oximetry 98 97 Intake & Output 11/19/17 11/20/17 11/20/17 18:59 06:59 18:59 Intake Total 1880 / 1879 1000 / 1000 Balance 1879 / 1879 1000 / 1000 Weight 79.4 kg Intake: IV 1000 / 1000 1000 / 1000 NS Inj 1,000 ML @ 125 mls/hr IV 1000 / 1000 1000 / 1000 .CONT .Q8H [facility] Rx#:[id number] Oral 480 / 480 Anesthesia Amount 400 / 400 Other: # Voids 4 4 Date of Last Bowel Movement 11/19/17 11/19/17 # Bowel Movements 1 Narrative: GENERAL: This is a well-nourished, well-developed patient, in no apparent distress. CARDIOVASCULAR: Normal rate and regular rhythm without murmurs, gallops, or rubs. RESPIRATORY: Good respiratory efforts. Breath sounds equal and clear to auscultation bilaterally. GASTROINTESTINAL: Abdomen obese, nontender, nondistended. Normal and active bowel sounds. MUSCULOSKELETAL: Extremities without cyanosis, or edema. NEURO: Alert & Oriented x4 to person, place, time, situation. Moves all ext x4 PSYCH: Appropriate mood and affect. Results Procedures completed during hospitalization: EGD Pending studies at discharge: Pending at discharge 11/19/17 14:54 Surgical [PTH] Routine Labs on day of discharge: Labs from last 24 hours 11/20/17 11/20/17 11/20/17 11:57 09:48 08:56 WBC RBC Hgb 8.4 L Hct 24.8 L MCV MCH MCHC RDW Plt Count MPV Sodium Potassium Chloride Carbon Dioxide Anion Gap BUN Creatinine Estimated GFR POC Glucose 164 H 152 H Random Glucose Calcium 11/20/17 11/20/17 11/19/17 04:49 04:49 16:53 WBC 6.4 RBC 2.39 L Hgb 7.8 L Hct 22.9 L MCV 95.9 MCH 32.8 MCHC 34.2 RDW 16.5 Plt Count 148 L MPV 8.8 Sodium 148 H Potassium 3.7 Chloride 110 H Carbon Dioxide 26.6 Anion Gap 11 BUN 10 Creatinine 0.54 Estimated GFR Greater than 89 POC Glucose 130 H Random Glucose 107 H Calcium 7.6 L D - Impressions ITS Impressions Abdomen/Pelvis CT 11/18/17 13:42 CONCLUSION: 1. No acute abnormality. 2. 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 3. Colonic diverticulosis without acute inflammation. Chest X-Ray 11/18/17 13:42 CONCLUSION: No acute cardiopulmonary disease. Discharge Plan - Discharge Disposition Patient Disposition: 01 Discharge Home - Discharge Condition Condition: Good - Discharge Order Discharge Orders: Discharge Order (Routine); Ordered 11/20/17 Ordered By: Darlene Rocha - Physicians Team Attending Provider: Darlene Rocha Other Providers: Bryanna Naejra MD
[2017-11-20 18:26] VITALS: PULSE 85; RESP 18; TEMP 97.6; O2SAT 98
== END 2017-11-20 16:30 | disposition home or self-care (01) ==
LOC: NEPC 12:02 → INTOOBSV 18:37 → NEDA 18:37 → NEPGCP 23:40 → HCIN 11-19 01:00
PROVIDERS: ADMIT Family Medicine; ATTEND Family Medicine
PROC: PANENDO (2017-11-19 12:55)
DX: K64.4 Residual hemorrhoidal skin tags; K57.30 Diverticulosis of large intestine without perforation or abscess without bleeding; R10.13 Epigastric pain; K25.4 Chronic or unspecified gastric ulcer with hemorrhage; E11.9 Type 2 diabetes mellitus without complications; F17.210 Nicotine dependence, cigarettes, uncomplicated; Z87.11 Personal history of peptic ulcer disease; I10 Essential (primary) hypertension; Z08 Encounter for follow-up examination after completed treatment for malignant neoplasm; Z85.44 Personal history of malignant neoplasm of other female genital organs; Z79.84 Long term (current) use of oral hypoglycemic drugs; I72.2 Aneurysm of renal artery; C88.4 Extranodal marginal zone B-cell lymphoma of mucosa-associated lymphoid tissue [MALT-lymphoma]; F41.9 Anxiety disorder, unspecified